=== PATIENT | female | born 2000 | race Caucasian/White ===

== ENCOUNTER 2021-06-30 14:42 | Observation (INO) ==
[2021-06-30] MEDS ORDERED: SODIUM CHLORIDE 0.9% 1000ML 1,000 ML IV STA (16:19)
[2021-06-30] MEDS ORDERED: ONDANSETRON INJ 2 MG/ML 2 ML VIAL IV STA (16:19)
[2021-06-30] MEDS ORDERED: MoRPHine SULFATE 4 MG/ML 1 ML CARP\\VIAL IV STA (16:19)
--- NOTE | 2021-06-30 16:28 | Emergency Department Note ---
History of Present Illness General Chief complaint: Abdominal Pain Stated complaint: SEVERE ABDOMINAL PAIN, NASUEA, LIGHT HEADED Time Seen by Provider: 06/30/21 16:05 History of Present Illness Maximum Pain Intensity: 10 20-year-old female who presents to the emergency department for evaluation of recurrent severe abdominal cramping, nausea, lightheadedness and mild diarrhea. The patient reports that she has been here twice within the past month with similar symptoms. The patient reports that she was feeling fine until this morning when she woke up. The patient has not checked her temperature at home. She denies any urinary symptoms or mucus/bloody stools. The patient reports that she has had abdominal problems now for over a year. She admits that she has not seen a forging die finisher or her family doctor at home, nor has she seen anyone since her last visit to the emergency department. The patient reports that she was previously prescribed Zofran and dicyclomine for her symptoms. She has not taken them recently. The patient rates her discomfort a 10 out of 10. She reports the pain is generalized across the entire abdomen. She has no specific alleviating or aggravating factors. Home Medications Medication Instructions Recorded Confirmed Type dicyclomine 20 mg tablet 20 mg PO TID PRN #15 tab 06/09/21 06/30/21 Rx promethazine 25 mg tablet 25 mg PO TID PRN #10 tab 06/11/21 06/30/21 Rx Allergies Allergy/AdvReac Type Severity Reaction Status Date / Time No Known Allergies Allergy Unverified 06/30/21 16:33 Past Med/Surg History Medical History No pertinent past medical history Surgical History S/P wisdom tooth extraction Social History (Updated 06/30/21 @ 16:23 by Joshua Barrera) Smoking Status: Never smoker Tobacco Type: Cigarettes Hx Alcohol Use: No Hx Substance Use: No Preferred Language: Citizen Of [place] marital status: Single current occupational status: student Feels Safe at Home: Yes Review of Systems 10 system review was performed and was negative except for pertinent positives and negatives as indicated in history of present illness Physical Exam Vital Signs Vital Signs - 24 hr 06/30/21 14:45 06/30/21 16:53 06/30/21 18:10 Temperature 36.9 C Temperature Source Temporal Artery Scan Pulse Rate 103 H Pulse Rate [Finger] 77 98 H Respiratory Rate 18 20 16 Respiratory Effort / Characteristics Non-Labored Spontaneous Respiratory Depth Normal Respiratory Pattern Regular Blood Pressure 162/96 H Blood Pressure [Left Arm] 126/91 114/69 Blood Pressure Mean 118 Blood Pressure Mean [Left Arm] 102 84 Blood Pressure Position [Left Arm] Lying Lying Pulse Oximetry 100 100 100 Oxygen Delivery Method Room Air Room Air Room Air Sepsis Recent Fever Within 48 Hours No Sepsis New/Unexplained Change in Mental Status No Sepsis Action Taken by Nursing No Action Required 06/30/21 19:04 06/30/21 19:49 Temperature Temperature Source Pulse Rate Pulse Rate [Finger] 92 H 98 H Respiratory Rate 18 Respiratory Effort / Characteristics Respiratory Depth Respiratory Pattern Blood Pressure Blood Pressure [Left Arm] 118/40 L 112/67 Blood Pressure Mean Blood Pressure Mean [Left Arm] 66 82 Blood Pressure Position [Left Arm] Lying Pulse Oximetry 99 98 Oxygen Delivery Method Room Air Room Air Sepsis Recent Fever Within 48 Hours Sepsis New/Unexplained Change in Mental Status Sepsis Action Taken by Nursing CONSTITUTIONAL: Healthy and well nourished. Alert and oriented X 3. Patient appears in moderate discomfort. HEENT: Normocephalic, atraumatic. Pupils equal, round and reactive. No scleral icterus or conjunctival injection/pallor. Mucous membranes are dry. NECK: Full active range of motion without discomfort. LYMPHATICS: No cervical chain adenopathy. RESPIRATORY: Clear to auscultation bilaterally with no wheezing, crackles, rhonchi or stridor. CARDIOVASCULAR: Regular rate and rhythm with no murmurs, rubs or gallops. GASTROINTESTINAL: Bowel sounds present in all quadrants. Patient has generalized and nonfocal tenderness to palpation of the abdomen. No rebound, rigidity or guarding. Negative CVA tenderness. MUSCULOSKELETAL: Full range of motion of all joints without discomfort. No obvious edema, erythema or increased warmth to palpation over the major joints. INTEGUMENTARY: No rash or other significant dermatologic conditions noted. HEMATOLOGIC: No ecchymosis or petechiae. PSYCHIATRIC: Positive affect. NEUROLOGIC: No focal neurologic deficits noted. Course Course Patient history and physical exam were performed. Nurses notes were reviewed. Vital signs were reviewed, showing an elevated blood pressure 162/96. The patient is mildly tachycardic at 103 bpm. She is not febrile. I also reviewed prior medical records from the patient's ED visits on 06/09 and 06/11/21. The patient did have CT imaging on both visits, showing no concerning findings. The patient did have a notable hypokalemia of 2.81 her second visit, otherwise no other major electrolyte abnormalities. Although the patient reports that CT imaging showed inflammatory findings. Actual radiologist reports from these 2 visits does not show any acute infectious or inflammatory findings within the abdomen or pelvis. IV access was established, and labs were drawn. The patient was hydrated with a liter normal saline, and administered IV morphine and Zofran for nausea. Review of labs shows a moderate leukocytosis with a white count of over 15,000, with a notable left shift and 3% bandemia. Further review of labs shows a lactate of 4.1. Today, the patient is normokalemic as opposed to prior visits. Anion gap is mildly elevated. LFTs and lipase are normal. Urinalysis shows 2+ glucosuria and 4+ ketonuria with no obvious evidence for infection. Urine was negative. Upon reevaluation, the patient rated her pain a 2 out of 10. Given her presenting symptoms and elevated lactate level, I did discuss the case further with Dr. Kilgore, ED attending physician, who agreed with CT angiography of the abdomen and pelvis. It is noted that the patient initially had a 22-gauge catheter inserted. I explained that we would need to switch this out to preferably an 18-gauge needle, and the patient was in agreement. We were able to establish 18-gauge IV access, and CT angiography of the abdomen and pelvis was performed, showing a transverse and descending colitis without any other obvious arterial compromise. Findings were again discussed with the patient. I did recommend discussing the case further with our hospitalist for admission, especially given her elevated white count and lactate level. The patient was in agreement to do so. I also discussed the case with the patient's mother via cell phone conversation in the patient's room, and she was also in agreement and appreciative of the care provided. The case was then further discussed with the [facility] Hospitalist service. Please see their dictation for further treatment and final disposition. Administered Medications Discontinued Medications Sodium Chloride (Nss 1000ml) 1,000 mls @ 999 mls/hr IV .Q1H1M STA Stop: 06/30/21 17:19 Last Infusion: 06/30/21 19:19 Dose: 0 mls/hr Documented by: [id number] Admin: 06/30/21 16:36 Dose: 999 mls/hr Documented by: [id number] Sodium Chloride (Nss 1000ml) 1,000 mls @ 999 mls/hr IV .Q1H1M ONE Stop: 06/30/21 19:25 Last Infusion: 06/30/21 19:24 Dose: 0 mls/hr Documented by: [id number] Admin: 06/30/21 18:20 Dose: 999 mls/hr Documented by: [id number] Ioversol (Optiray 320 125ml) 119 ml IV ONCE ONE Stop: 06/30/21 18:20 Last Admin: 06/30/21 18:19 Dose: 1 ml Documented by: [id number] Morphine Sulfate (Morphine Sulfate 4 Mg/Ml 1 Ml Carp\Vial) 4 mg IV NOW STA Stop: 06/30/21 16:20 Last Admin: 06/30/21 16:36 Dose: 4 mg Documented by: [id number] Ondansetron HCl (Ondansetron Inj 2 Mg/Ml 2 Ml Vial) 4 mg IV NOW STA Stop: 06/30/21 16:20 Last Admin: 06/30/21 16:35 Dose: 4 mg Documented by: [id number] Medical Decision Making Medical Records Attestation: I reviewed the patient's medical records. Home Medications Current Medication List: was personally reviewed by me Laboratory Data Attestation: I reviewed the patient's lab results. Result diagrams: 06/30/21 16:35 06/30/21 16:35 Lab Results 06/30/21 06/30/21 06/30/21 Range/Units 16:35 16:35 16:35 WBC 15.05 H (4.8-10.8) K/uL RBC 4.72 (4.2-5.4) M/uL Hgb 15.5 (12.0-16.0) g/dL Hct 42.9 (37-47) % MCV 90.9 (80-100) fL MCH 32.8 (25-34) pg MCHC 36.1 H (32-36) g/dL RDW Std Deviation 40.1 (36.4-46.3) fL RDW Coeff of Claudia 12.1 (11.5-14.5) % Plt Count 256 (130-400) K/uL MPV 10.6 H (7.4-10.4) fL Immature Gran % (Auto) 0.2 % Neut % (Auto) 94.0 % Lymph % (Auto) 3.4 % Traill % (Auto) 2.3 % Eos % (Auto) 0.0 % Baso % (Auto) 0.1 % Neut # (Auto) 14.16 H (1.4-6.5) K/uL Lymph # (Auto) 0.51 L (1.2-3.4) K/uL Traill # (Auto) 0.34 (0.11-0.59) K/uL Eos # (Auto) 0.00 (0-0.5) K/uL Baso # (Auto) 0.01 (0-0.2) K/uL Immature Gran # (Auto) 0.03 H (0.00-0.02) K/uL Sodium 138 (136-145) mmol/L Potassium 3.6 (3.5-5.1) mmol/L Chloride 108 H (98-107) mmol/L Carbon Dioxide 16 L (21-32) mmol/L Anion Gap 14.0 H (3-11) BUN 14 (7-18) mg/dl Creatinine 1.02 (0.6-1.2) mg/dl Est Cr Clr Drug Dosing 65.8 ml/min Est GFR ( Amer) 91.1 ml/min Est GFR (Non-Af Amer) 78.6 ml/min BUN/Creatinine Ratio 13.4 (10-20) Glucose 155 H (70-99) mg/dl Lactate 4.1 H* (0.4-2.0) mmol/L Calcium 9.5 (8.5-10.1) mg/dl Phosphorus 2.4 L (2.5-4.9) mg/dl Magnesium 1.8 (1.8-2.4) mg/dl Total Bilirubin 0.9 (0.2-1) mg/dl AST 10 L (15-37) U/L ALT 17 (12-78) U/L Alkaline Phosphatase 63 (45-117) U/L Lactate Dehydrogenase (84-246) U/L Total Protein 8.5 H (6.4-8.2) gm/dl Albumin 4.5 (3.4-5.0) gm/dl Globulin 4.0 (2.5-4.0) gm/dl Albumin/Globulin Ratio 1.1 (0.9-2) Lipase 90 (73-393) U/L Urine Color Urine Appearance (Clear) Urine pH (4.5-7.5) Ur Specific [place] (1.000-1.030) Urine Protein (Negative) Urine Glucose (UA) (Negative) Urine Ketones (Negative) Urine Blood (Negative) Urine Nitrite (Negative) Urine Bilirubin (Negative) Urine Urobilinogen (Negative) Ur Leukocyte Esterase (Negative) Urine WBC (Auto) (0-5) /hpf Urine RBC (Auto) (0-4) /hpf U Hyaline Cast (Auto) (0-5) /lpf U Epithel Cells (Auto) (0-5) /lpf Urine Bacteria (Auto) (Negative) Ur Renal Epithelial Cell POC Ur Test (NEG) Urine Opiates Screen (Neg) Ur Methadone, Qual (Neg) Urine Barbiturates (Neg) Ur Phencyclidine (PCP) (Neg) U Amphetamin/Meth Scrn (Neg) MDMA (Ecstasy) Screen (Neg) U Benzodiazepines Scrn (Neg) Ur Cocaine Metabolite (Neg) U Marijuana (THC) Screen (Neg) COVID-19 Eval Order 06/30/21 06/30/21 06/30/21 Range/Units 16:35 16:35 16:35 WBC (4.8-10.8) K/uL RBC (4.2-5.4) M/uL Hgb (12.0-16.0) g/dL Hct (37-47) % MCV (80-100) fL MCH (25-34) pg MCHC (32-36) g/dL RDW Std Deviation (36.4-46.3) fL RDW Coeff of Claudia (11.5-14.5) % Plt Count (130-400) K/uL MPV (7.4-10.4) fL Immature Gran % (Auto) % Neut % (Auto) % Lymph % (Auto) % [place] % (Auto) % Eos % (Auto) % Baso % (Auto) % Neut # (Auto) (1.4-6.5) K/uL Lymph # (Auto) (1.2-3.4) K/uL Traill # (Auto) (0.11-0.59) K/uL Eos # (Auto) (0-0.5) K/uL Baso # (Auto) (0-0.2) K/uL Immature Gran # (Auto) (0.00-0.02) K/uL Sodium (136-145) mmol/L Potassium (3.5-5.1) mmol/L Chloride (98-107) mmol/L Carbon Dioxide (21-32) mmol/L Anion Gap (3-11) BUN (7-18) mg/dl Creatinine (0.6-1.2) mg/dl Est Cr Clr Drug Dosing ml/min Est GFR ( Amer) ml/min Est GFR (Non-Af Amer) ml/min BUN/Creatinine Ratio (10-20) Glucose (70-99) mg/dl Lactate (0.4-2.0) mmol/L Calcium (8.5-10.1) mg/dl Phosphorus (2.5-4.9) mg/dl Magnesium (1.8-2.4) mg/dl Total Bilirubin (0.2-1) mg/dl AST (15-37) U/L ALT (12-78) U/L Alkaline Phosphatase (45-117) U/L Lactate Dehydrogenase 159 (84-246) U/L Total Protein (6.4-8.2) gm/dl Albumin (3.4-5.0) gm/dl Globulin (2.5-4.0) gm/dl Albumin/Globulin Ratio (0.9-2) Lipase (73-393) U/L Urine Color Yellow Urine Appearance Clear (Clear) Urine pH 7.5 (4.5-7.5) Ur Specific [place] 1.033 H (1.000-1.030) Urine Protein Trace H (Negative) Urine Glucose (UA) 2+ H (Negative) Urine Ketones 4+ H (Negative) Urine Blood Negative (Negative) Urine Nitrite Negative (Negative) Urine Bilirubin Negative (Negative) Urine Urobilinogen Negative (Negative) Ur Leukocyte Esterase Negative (Negative) Urine WBC (Auto) 1-5 (0-5) /hpf Urine RBC (Auto) 10-30 H (0-4) /hpf U Hyaline Cast (Auto) 1-5 (0-5) /lpf U Epithel Cells (Auto) >30 H (0-5) /lpf Urine Bacteria (Auto) Negative (Negative) Ur Renal Epithelial Cell Not Reportable POC Ur Test (NEG) Urine Opiates Screen Neg (Neg) Ur Methadone, Qual Neg (Neg) Urine Barbiturates Neg (Neg) Ur Phencyclidine (PCP) Neg (Neg) U Amphetamin/Meth Scrn Neg (Neg) MDMA (Ecstasy) Screen Neg (Neg) U Benzodiazepines Scrn Neg (Neg) Ur Cocaine Metabolite Neg (Neg) U Marijuana (THC) Screen Pos H (Neg) COVID-19 Eval Order 06/30/21 06/30/21 06/30/21 Range/Units 16:53 20:03 20:22 WBC (4.8-10.8) K/uL RBC (4.2-5.4) M/uL Hgb (12.0-16.0) g/dL Hct (37-47) % MCV (80-100) fL MCH (25-34) pg MCHC (32-36) g/dL RDW Std Deviation (36.4-46.3) fL RDW Coeff of Claudia (11.5-14.5) % Plt Count (130-400) K/uL MPV (7.4-10.4) fL Immature Gran % (Auto) % Neut % (Auto) % Lymph % (Auto) % [place] % (Auto) % Eos % (Auto) % Baso % (Auto) % Neut # (Auto) (1.4-6.5) K/uL Lymph # (Auto) (1.2-3.4) K/uL [place] # (Auto) (0.11-0.59) K/uL Eos # (Auto) (0-0.5) K/uL Baso # (Auto) (0-0.2) K/uL Immature Gran # (Auto) (0.00-0.02) K/uL Sodium (136-145) mmol/L Potassium (3.5-5.1) mmol/L Chloride (98-107) mmol/L Carbon Dioxide (21-32) mmol/L Anion Gap (3-11) BUN (7-18) mg/dl Creatinine (0.6-1.2) mg/dl Est Cr Clr Drug Dosing ml/min Est GFR ( Amer) ml/min Est GFR (Non-Af Amer) ml/min BUN/Creatinine Ratio (10-20) Glucose (70-99) mg/dl Lactate 1.4 (0.4-2.0) mmol/L Calcium (8.5-10.1) mg/dl Phosphorus (2.5-4.9) mg/dl Magnesium (1.8-2.4) mg/dl Total Bilirubin (0.2-1) mg/dl AST (15-37) U/L ALT (12-78) U/L Alkaline Phosphatase (45-117) U/L Lactate Dehydrogenase (84-246) U/L Total Protein (6.4-8.2) gm/dl Albumin (3.4-5.0) gm/dl Globulin (2.5-4.0) gm/dl Albumin/Globulin Ratio (0.9-2) Lipase (73-393) U/L Urine Color Urine Appearance (Clear) Urine pH (4.5-7.5) Ur Specific [place] (1.000-1.030) Urine Protein (Negative) Urine Glucose (UA) (Negative) Urine Ketones (Negative) Urine Blood (Negative) Urine Nitrite (Negative) Urine Bilirubin (Negative) Urine Urobilinogen (Negative) Ur Leukocyte Esterase (Negative) Urine WBC (Auto) (0-5) /hpf Urine RBC (Auto) (0-4) /hpf U Hyaline Cast (Auto) (0-5) /lpf U Epithel Cells (Auto) (0-5) /lpf Urine Bacteria (Auto) (Negative) Ur Renal Epithelial Cell POC Ur Test NEG (NEG) Urine Opiates Screen (Neg) Ur Methadone, Qual (Neg) Urine Barbiturates (Neg) Ur Phencyclidine (PCP) (Neg) U Amphetamin/Meth Scrn (Neg) MDMA (Ecstasy) Screen (Neg) U Benzodiazepines Scrn (Neg) Ur Cocaine Metabolite (Neg) U Marijuana (THC) Screen (Neg) COVID-19 Eval Order Covid19 at [facility] Imaging Data Attestation: I personally reviewed and interpreted this imaging study as follows: My Impression: My interpretation of an abdomen and pelvis CT angiography study does not show any obvious acute arterial compromise. Patient does have inflammatory changes of the transverse and descending colon, as discussed in the following radiologist report. Radiologist's Impression: Abdomen/Pelvis CTA 06/30/21 18:05 CT angio abdomen pelvis w con CT DOSE: 507.14 mGy.cm CLINICAL HISTORY: Severe abd pain, elev lactate TECHNIQUE: A dose lowering technique was utilized adhering to the principles of ALARA. COMPARISON STUDY: None. FINDINGS: Limited evaluation of lung bases shows no evidence of acute abnormalities. Abdominal aorta is normal in caliber without evidence of dissection or aneurysmal dilatation. Celiac, superior mesenteric bilateral renal and inferior mesenteric arteries are patent. Liver, gallbladder, pancreas and bilateral adrenal glands are unremarkable. Linear lucency is seen within posterior aspect of the spleen which is extending to its capsulae most likely representing cleft. No evidence of surrounding hematoma is seen to suggest splenic rupture (). No hydronephrosis or nephrolithiasis is seen. Urinary bladder is adequately filled with urine. Uterus is anteverted with IUD within uterine cavity. Cystic appearance of bilateral adnexa is seen which could represent physiologic follicles or cysts. Small amount of free fluid is seen within cul-de-sac which could be normal findings in premenopausal female. Bowel loops are nondilated. Appendix is normal in caliber. Transverse and descending colon are collapsed with mild surrounding fat stranding and minimal wall thickening, however there is no mucosal enhancement is seen. Minimal fat stranding is seen within right lower quadrant surrounding loop or terminal ileum. No evidence of retroperitoneal lymphadenopathy. Osseous structures are unremarkable. . IMPRESSION: 1. Normal appearance of abdominal aorta without evidence of dissection or aneurysmal dilatation. Celiac, mesenteric and renal arteries are patent. 2. Collapsed transverse and descending colon with mild surrounding fat stranding and vascularity, could represent colitis. No definite mucosal enhancement is seen. Please correlate above-mentioned findings with prior history and clinical presentation of inflammatory bowel disease. 3. Normal appendix. 4. No hydronephrosis or nephrolithiasis. 5. Cystic appearance of bilateral adnexa which could represent physiologic follicles or cysts. Follow-up evaluation with pelvic ultrasound in approximately 8 weeks is suggested to document improvement/resolution. 6. The rest of findings as above. ACT 112: Positive. There are findings on this exam that require communication between the performing entity and the patient following Patient Test Result Information Act ([place] Act 112) guidelines. The above report was generated using voice recognition software. It may contain grammatical, syntax or spelling errors. Electronically signed by: Joanne Zhang DO 06/30/2021 7:38 PM Blood Pressure Blood Pressure Findings: Normal blood pressure MDM Narrative This is now the patient's third visit within the past 3 weeks for abdominal pain that is rather sudden onset in nature. Prior CT imaging of the abdomen has been normal. On today's presentation, the patient has a notable leukocytosis with elevated lactate. I did order CT angiography to rule out other acute arterial etiologies, which fortunately are not present. CT imaging does show evidence for a probable inflammatory colitis of the transverse and descending colon. The patient will likely require colonoscopy studies to rule out inflammatory bowel disease. While speaking on the phone with the patient's mother, the mother also has a history of IBD. Additional laboratory studies are not suggestive of pancreatitis, cholecystitis, hepatitis or UTI. Patient does have a positive urine drug test for marijuana that could also be playing into her symptoms with possible cannabinoid hyperemesis syndrome. I do feel that the patient warrants admission given CT findings, elevated lactate level and leukocytosis. Impression & Plan Colitis, Abdominal pain, Nausea and vomiting Discharge Plan Visit Data Chief Complaint: Abdominal Pain Stated Complaint: SEVERE ABDOMINAL PAIN, NASUEA, LIGHT HEADED ED Provider: Manuel Kilgore ED Midlevel Provider: Joshua Barrera Discharge Problem: Colitis, Abdominal pain, Nausea and vomiting Forms Stand Alone Forms: Nanalysis Prescriptions Prescriptions: No Action dicyclomine 20 mg tablet 20 mg PO TID PRN (Reason: abdominal cramping) Qty: 15 RF: 0 promethazine 25 mg tablet 25 mg PO TID PRN (Reason: sedation) Qty: 10 RF: 0 Referrals Referrals: PCP,NO [Physician] - Discharge Problem: Abdominal pain Qualifiers: Abdominal location: generalized Qualified Code(s): R10.84 - Generalized abdominal pain Nausea and vomiting Qualifiers: Vomiting type: unspecified Vomiting Intractability: non-intractable Qualified Code(s): R11.2 - Nausea with vomiting, unspecified
[2021-06-30 16:57] LABS: Basophils # (auto) 0.01 K/uL (0-0.2); Basophils % (auto) 0.1 %; Hematocrit (blood only) 42.9 % (37-47); Hemoglobin 15.5 g/dL (12.0-16.0); Immature Granulocytes # (auto) 0.03 K/uL (0.00-0.02); Immature Granulocytes % (auto) 0.2 %; Lymphocytes # (auto) 0.51 K/uL (1.2-3.4); Lymphocytes % (auto) 3.4 %; Mean Corpuscular Hemoglobin 32.8 pg (25-34); Mean Corpuscular Hgb Conc 36.1 g/dL (32-36); Mean Corpuscular Volume 90.9 fL (80-100); Mean Platelet Volume 10.6 fL (7.4-10.4); Monocytes # (auto) 0.34 K/uL (0.11-0.59); Monocytes % (auto) 2.3 %; Neutrophils # (auto) 14.16 K/uL (1.4-6.5); Platelet Count 256 K/uL (130-400); RDW Coefficient of Variation 12.1 % (11.5-14.5); RDW Standard Deviation 40.1 fL (36.4-46.3); Red Blood Count 4.72 M/uL (4.2-5.4); White Blood Count 15.05 K/uL (4.8-10.8)
[2021-06-30 17:23] LABS: Appearance Urine Clear (Clear); Bacteria Urine Automated Negative (Negative); Bilirubin Urine Negative (Negative); Blood Urine Negative (Negative); Color Urine Yellow; Epithelial Cell Urine Auto >30 /lpf (0-5); Glucose Urine UA 2+ (Negative); Ketones Urine 4+ (Negative); Leukocyte Esterase Urine Negative (Negative); Nitrite Urine Negative (Negative); Specific Gravity Urine 1.033 (1.000-1.030); Urobilinogen Urine Negative (Negative); pH Urine 7.5 (4.5-7.5)
[2021-06-30 17:26] LABS: Albumin Level 4.5 gm/dl (3.4-5.0); BUN Creatinine Ratio 13.4 (10-20); Bilirubin,Total 0.9 mg/dl (0.2-1); Calcium 9.5 mg/dl (8.5-10.1); Creatinine Clr Calc Pharmacy 65.8 ml/min; Est GFR (African American) 91.1 ml/min; Est GFR (Non-African American) 78.6 ml/min; Magnesium 1.8 mg/dl (1.8-2.4); Potassium 3.6 mmol/L (3.5-5.1)
[2021-06-30 17:28] LABS: Albumin Globulin Ratio 1.1 (0.9-2); Phosphorus 2.4 mg/dl (2.5-4.9); Total Protein 8.5 gm/dl (6.4-8.2)
[2021-06-30 17:32] LABS: Protein Urine Trace (Negative)
[2021-06-30 18:19] LABS: Amphetamines+Metham, Urine Neg (Neg); Barbiturates, Urine Neg (Neg); Benzodiazepine, Urine Neg (Neg); Cocaine, Urine Neg (Neg); MDMA (Ecstacy), Urine Neg (Neg); Methadone, Urine Neg (Neg); Opiate, Urine Neg (Neg); Phencyclidine, Urine Neg (Neg)
[2021-06-30] MEDS ORDERED: OPTIRAY 320 125ml IV ONE (18:19)
[2021-06-30] MEDS ORDERED: SODIUM CHLORIDE 0.9% 1000ML 1,000 ML IV ONE (18:25)
--- NOTE | 2021-06-30 19:39 | CT Scan Report ---
CT angio abdomen pelvis w con CT DOSE: 507.14 mGy.cm CLINICAL HISTORY: Severe abd pain, elev lactate TECHNIQUE: A dose lowering technique was utilized adhering to the principles of ALARA. COMPARISON STUDY: None. FINDINGS: Limited evaluation of lung bases shows no evidence of acute abnormalities. Abdominal aorta is normal in caliber without evidence of dissection or aneurysmal dilatation. Celiac, superior mesenteric bilateral renal and inferior mesenteric arteries are patent. Liver, gallbladder, pancreas and bilateral adrenal glands are unremarkable. Linear lucency is seen within posterior aspect of the spleen which is extending to its capsulae most likely representing cleft. No evidence of surrounding hematoma is seen to suggest splenic rupture (). No hydronephrosis or nephrolithiasis is seen. Urinary bladder is adequately filled with urine. Uterus is anteverted with IUD within uterine cavity. Cystic appearance of bilateral adnexa is seen which could represent physiologic follicles or cysts. Small amount of free fluid is seen within cul-de-sac which could be normal findings in premenopausal female. Bowel loops are nondilated. Appendix is normal in caliber. Transverse and descending colon are collapsed with mild surrounding fat stranding and minimal wall th ickening, however there is no mucosal enhancement is seen. Minimal fat stranding is seen within right lower quadrant surrounding loop or terminal ileum. No evidence of retroperitoneal lymphadenopathy. Osseous structures are unremarkable. . IMPRESSION: 1. Normal appearance of abdominal aorta without evidence of dissection or aneurysmal dilatation. Starr iac, mesenteric and renal arteries are patent. 2. Collapsed transverse and descending colon with mild surrounding fat stranding and vascularity, co uld represent colitis. No definite mucosal enhancement is seen. Please correlate above-mentioned find ings with prior history and clinical presentation of inflammatory bowel disease. 3. Normal appendix. 4. No hydronephrosis or nephrolithiasis. 5. Cystic appearance of bilateral adnexa which could represent physiologic follicles or cysts. Follo w-up evaluation with pelvic ultrasound in approximately 8 weeks is suggested to document improvement/ resolution. 6. The rest of findings as above. ACT 112: Positive. There are findings on this exam that require communication between the performing entity and the patient following Patient Test Result Information Act [place] Act 112) guidelines. The above report was generated using voice recognition software. It may contain grammatical, syntax o r spelling errors. Electronically signed by: Joanne Zhang DO 06/30/2021 7:38 PM
--- NOTE | 2021-06-30 22:23 | History & Physical Report ---
Date of Service June 30, 2021 Assessment & Plan (1) Colitis: Plan: CT scan suggestive of possible colitis- Full liquid diet NSS + KCl 20 mEq at 100 mils per hour Famotidine 20 mg IV every 12 hours Zofran 4 mg IV every 6 hours as needed Phenergan 12.5 mg IV every 6 hours as needed Acetaminophen 650 mg p.o. every 6 hours as needed mild pain or fever Follow results of stool studies for C. difficile and stool culture Of note patient vapes with prescription marijuana every evening to help deal with PTSD/insomnia Consult gastroenterology due to family history of IBD and patient's current symptoms History of Present Illness Chief Complaint: The patient presents to the emergency department with recurrent severe abdominal pain, cramping and nausea, with the development of diarrhea earlier this morning. Primary Care Provider: [facility] The patient is a 20-year-old female with a past medical history, who has had several months of abdominal pain, which is worsened over the past few weeks, and was accompanied by diarrhea early this morning. She has presented to the emergency department on June 09, June 11, and this evening with worsening symptoms. She reports a family history of her mother having some form of inflammatory bowel disease. She denies any recent travels or sick exposures. She is COVID-19 negative in the ED. She does vape marijuana every evening on a prescription basis. Allergies Allergy/AdvReac Type Severity Reaction Status Date / Time No Known Allergies Allergy Unverified 06/30/21 16:33 Home Medications Medication Instructions Recorded Confirmed Type dicyclomine 20 mg tablet 20 mg PO TID PRN #15 tab 06/09/21 06/30/21 Rx promethazine 25 mg tablet 25 mg PO TID PRN #10 tab 06/11/21 06/30/21 Rx Past Med/Surg History Medical History No pertinent past medical history Surgical History S/P wisdom tooth extraction Social History (Updated 06/30/21 @ 16:23 by Joshua Barrera) Smoking Status: Never smoker Tobacco Type: Cigarettes Hx Alcohol Use: No Hx Substance Use: No Preferred Language: Uzbek marital status: Single current occupational status: student Feels Safe at Home: Yes Review of Systems Review of Systems: The patient denies chest pain, palpitations, shortness of breath, dyspnea on exertion, cough, lower extremity swelling, sore throat, fevers, chills, sweats, vomiting, blood in urine or stool, dysuria, urinary frequency or urgency, dizziness, headache, memory loss, loss of consciousness, rash, abnormal bruising or bleeding, imbalance, focal or generalized weakness, numbness or tingling in arms or legs, generalized arthralgias or myalgias, back or neck pain, or night sweats. The review of systems is otherwise negative other than for that already noted above, and at least 10 systems have been reviewed. Physical Exam Physical Exam: The patient is awake, alert and oriented 3, well developed and well nourished, normocephalic and atraumatic, lying in bed and in no acute distress. HEENT--PERRL, EOMI, mucous membranes and oropharynx dry. Neck--supple. No JVD. No bruits. Thyroid normal, trachea midline, no adenopathy. Heart--normal S1 and S2. No murmurs, rubs or gallops. Lungs--clear bilaterally, no respiratory distress, no accessory muscle use. Abdomen--normal bowel sounds and soft. Nontender. Nondistended, no hernias or masses, no organomegaly. Extremities--no cyanosis or clubbing. No edema. Dermatologic--normal skin turgor, normal color, no abnormal lymph nodes, no rash. Neurologic--cranial nerves II through XII grossly intact. Rheumatologic--normal range of motion. Psychiatric--normal affect. Results & Data Results & Data ([facility]) Vital Signs (Past 12 Hours) Vital Signs Temp Pulse Pulse Resp BP BP Pulse Ox 06/30/21 21:05 96 H 18 119/72 97 06/30/21 19:49 98 H 18 112/67 98 06/30/21 19:04 92 H 118/40 L 99 06/30/21 18:10 98 H 16 114/69 100 06/30/21 16:53 77 20 126/91 100 06/30/21 14:45 98.4 F 103 H 18 162/96 H 100 Laboratory Results Laboratory Results WBC 15.05 K/uL (4.8-10.8) H 06/30/21 16:35 RBC 4.72 M/uL (4.2-5.4) 06/30/21 16:35 Hgb 15.5 g/dL (12.0-16.0) 06/30/21 16:35 Hct 42.9 % (37-47) 06/30/21 16:35 MCV 90.9 fL (80-100) 06/30/21 16:35 MCH 32.8 pg (25-34) 06/30/21 16:35 MCHC 36.1 g/dL (32-36) H 06/30/21 16:35 RDW Std Deviation 40.1 fL (36.4-46.3) 06/30/21 16:35 RDW Coeff of Claudia 12.1 % (11.5-14.5) 06/30/21 16:35 Plt Count 256 K/uL (130-400) 06/30/21 16:35 MPV 10.6 fL (7.4-10.4) H 06/30/21 16:35 Immature Gran % (Auto) 0.2 % 06/30/21 16:35 Neut % (Auto) 94.0 % 06/30/21 16:35 Lymph % (Auto) 3.4 % 06/30/21 16:35 Cooper % (Auto) 2.3 % 06/30/21 16:35 Eos % (Auto) 0.0 % 06/30/21 16:35 Baso % (Auto) 0.1 % 06/30/21 16:35 Neut # (Auto) 14.16 K/uL (1.4-6.5) H 06/30/21 16:35 Lymph # (Auto) 0.51 K/uL (1.2-3.4) L 06/30/21 16:35 [place] # (Auto) 0.34 K/uL (0.11-0.59) 06/30/21 16:35 Eos # (Auto) 0.00 K/uL (0-0.5) 06/30/21 16:35 Baso # (Auto) 0.01 K/uL (0-0.2) 06/30/21 16:35 Immature Gran # (Auto) 0.03 K/uL (0.00-0.02) H 06/30/21 16:35 Sodium 138 mmol/L (136-145) 06/30/21 16:35 Potassium 3.6 mmol/L (3.5-5.1) 06/30/21 16:35 Chloride 108 mmol/L (98-107) H 06/30/21 16:35 Carbon Dioxide 16 mmol/L (21-32) L 06/30/21 16:35 Anion Gap 14.0 (3-11) H 06/30/21 16:35 BUN 14 mg/dl (7-18) 06/30/21 16:35 Creatinine 1.02 mg/dl (0.6-1.2) 06/30/21 16:35 Est Cr Clr Drug Dosing 65.8 ml/min 06/30/21 16:35 Est GFR ( Amer) 91.1 ml/min 06/30/21 16:35 Est GFR (Non-Af Amer) 78.6 ml/min 06/30/21 16:35 BUN/Creatinine Ratio 13.4 (10-20) 06/30/21 16:35 Glucose 155 mg/dl (70-99) H 06/30/21 16:35 Lactate 1.4 mmol/L (0.4-2.0) 06/30/21 20:22 Calcium 9.5 mg/dl (8.5-10.1) 06/30/21 16:35 Phosphorus 2.4 mg/dl (2.5-4.9) L 06/30/21 16:35 Magnesium 1.8 mg/dl (1.8-2.4) 06/30/21 16:35 Total Bilirubin 0.9 mg/dl (0.2-1) 06/30/21 16:35 AST 10 U/L (15-37) L 06/30/21 16:35 ALT 17 U/L (12-78) 06/30/21 16:35 Alkaline Phosphatase 63 U/L (45-117) 06/30/21 16:35 Lactate Dehydrogenase 159 U/L (84-246) 06/30/21 16:35 Total Protein 8.5 gm/dl (6.4-8.2) H 06/30/21 16:35 Albumin 4.5 gm/dl (3.4-5.0) 06/30/21 16:35 Globulin 4.0 gm/dl (2.5-4.0) 06/30/21 16:35 Albumin/Globulin Ratio 1.1 (0.9-2) 06/30/21 16:35 Lipase 90 U/L (73-393) 06/30/21 16:35 Urine Color Yellow 06/30/21 16:35 Urine Appearance Clear (Clear) 06/30/21 16:35 Urine pH 7.5 (4.5-7.5) 06/30/21 16:35 Ur Specific [place] 1.033 (1.000-1.030) H 06/30/21 16:35 Urine Protein Trace (Negative) H 06/30/21 16:35 Urine Glucose (UA) 2+ (Negative) H 06/30/21 16:35 Urine Ketones 4+ (Negative) H 06/30/21 16:35 Urine Blood Negative (Negative) 06/30/21 16:35 Urine Nitrite Negative (Negative) 06/30/21 16:35 Urine Bilirubin Negative (Negative) 06/30/21 16:35 Urine Urobilinogen Negative (Negative) 06/30/21 16:35 Ur Leukocyte Esterase Negative (Negative) 06/30/21 16:35 Urine WBC (Auto) 1-5 /hpf (0-5) 06/30/21 16:35 Urine RBC (Auto) 10-30 /hpf (0-4) H 06/30/21 16:35 U Hyaline Cast (Auto) 1-5 /lpf (0-5) 06/30/21 16:35 U Epithel Cells (Auto) >30 /lpf (0-5) H 06/30/21 16:35 Urine Bacteria (Auto) Negative (Negative) 06/30/21 16:35 Ur Renal Epithelial Cell Not Reportable 06/30/21 16:35 POC Ur Test NEG (NEG) 06/30/21 16:53 Urine Opiates Screen Neg (Neg) 06/30/21 16:35 Ur Methadone, Qual Neg (Neg) 06/30/21 16:35 Urine Barbiturates Neg (Neg) 06/30/21 16:35 Ur Phencyclidine (PCP) Neg (Neg) 06/30/21 16:35 U Amphetamin/Meth Scrn Neg (Neg) 06/30/21 16:35 MDMA (Ecstasy) Screen Neg (Neg) 06/30/21 16:35 U Benzodiazepines Scrn Neg (Neg) 06/30/21 16:35 Ur Cocaine Metabolite Neg (Neg) 06/30/21 16:35 U Marijuana (THC) Screen Pos (Neg) H 06/30/21 16:35 COVID-19 Eval Order Covid19 at [facility] 06/30/21 20:03 SARS-CoV-2 (PCR) NEGATIVE (Negative) 06/30/21 20:03 Impressions Abdomen/Pelvis CTA 06/30/21 18:05 CT angio abdomen pelvis w con CT DOSE: 507.14 mGy.cm CLINICAL HISTORY: Severe abd pain, elev lactate TECHNIQUE: A dose lowering technique was utilized adhering to the principles of ALARA. COMPARISON STUDY: None. FINDINGS: Limited evaluation of lung bases shows no evidence of acute abnormalities. Abdominal aorta is normal in caliber without evidence of dissection or aneurysmal dilatation. Celiac, superior mesenteric bilateral renal and inferior mesenteric arteries are patent. Liver, gallbladder, pancreas and bilateral adrenal glands are unremarkable. Linear lucency is seen within posterior aspect of the spleen which is extending to its capsulae most likely representing cleft. No evidence of surrounding hematoma is seen to suggest splenic rupture (-). No hydronephrosis or nephrolithiasis is seen. Urinary bladder is adequately filled with urine. Uterus is anteverted with IUD within uterine cavity. Cystic appearance of bilateral adnexa is seen which could represent physiologic follicles or cysts. Small amount of free fluid is seen within cul-de-sac which could be normal findings in premenopausal female. Bowel loops are nondilated. Appendix is normal in caliber. Transverse and descending colon are collapsed with mild surrounding fat stranding and minimal wall thickening, however there is no mucosal enhancement is seen. Minimal fat stranding is seen within right lower quadrant surrounding loop or terminal ileum. No evidence of retroperitoneal lymphadenopathy. Osseous structures are unremarkable. . IMPRESSION: 1. Normal appearance of abdominal aorta without evidence of dissection or aneurysmal dilatation. Celiac, mesenteric and renal arteries are patent. 2. Collapsed transverse and descending colon with mild surrounding fat stranding and vascularity, could represent colitis. No definite mucosal enhancement is seen. Please correlate above-mentioned findings with prior history and clinical presentation of inflammatory bowel disease. 3. Normal appendix. 4. No hydronephrosis or nephrolithiasis. 5. Cystic appearance of bilateral adnexa which could represent physiologic follicles or cysts. Follow-up evaluation with pelvic ultrasound in approximately 8 weeks is suggested to document improvement/resolution. 6. The rest of findings as above. ACT 112: Positive. There are findings on this exam that require communication between the performing entity and the patient following Patient Test Result Information Act ([place] Act 112) guidelines. The above report was generated using voice recognition software. It may contain grammatical, syntax or spelling errors. Electronically signed by: Joanne Zhang DO 06/30/2021 7:38 PM Code Status & VTE Plan Code Status Full code VTE Prophylaxis Plan VTE Prophylaxis will be ordered: Yes PG Care Time/CCT Total # of Minutes Spent Total Time Spent with Patient: Total time spent is greater than 50% in coordination of care (as documented) at patient's floor/unit and/or counseling patient: Coding Level of Care Code INT OBSERVATION CARE 70M LVL 3 Diagnoses Colitis K52.9
[2021-06-30] MEDS ORDERED: DICYCLOMINE HCL 20 MG TAB PO PRN (23:49)
[2021-06-30] MEDS ORDERED: ACETAMINOPHEN 325 MG TAB PO PRN (23:49)
[2021-06-30] MEDS ORDERED: ONDANSETRON INJ 2 MG/ML 2 ML VIAL IV PRN (23:49)
[2021-06-30] MEDS ORDERED: PROMETHAZINE HCL 12.5 MG in SODIUM CHLORIDE 0.9% 50 ML IV PRN (23:49)
[2021-07-01] MEDS: NSS + 20MEQ KCL 20 MEQ/1,000 ML BAG IV SCH ×2 (00:16→10:20)
[2021-07-01] MEDS: FAMOTIDINE 20 MG in SYRINGE 3 ML IV SCH ×2 (00:17→11:53)
[2021-07-01] MEDS ORDERED: MoRPHine SULFATE 2 MG/ML CARP IV STA (03:26)
[2021-07-01] MEDS ORDERED: MoRPHine SULFATE 2 MG/ML CARP ONE (03:29)
[2021-07-01 08:01] LABS: Basophils # (auto) 0.02 K/uL (0-0.2); Basophils % (auto) 0.2 %; Eosinophils # (auto) 0.01 K/uL (0-0.5); Eosinophils % (auto) 0.1 %; Hematocrit (blood only) 35.3 % (37-47); Hemoglobin 11.9 g/dL (12.0-16.0); Immature Granulocytes # (auto) 0.02 K/uL (0.00-0.02); Immature Granulocytes % (auto) 0.2 %; Lymphocytes # (auto) 1.82 K/uL (1.2-3.4); Lymphocytes % (auto) 17.6 %; Mean Corpuscular Hemoglobin 31.8 pg (25-34); Mean Corpuscular Hgb Conc 33.7 g/dL (32-36); Mean Corpuscular Volume 94.4 fL (80-100); Mean Platelet Volume 10.5 fL (7.4-10.4); Monocytes # (auto) 0.71 K/uL (0.11-0.59); Monocytes % (auto) 6.9 %; Neutrophils # (auto) 7.75 K/uL (1.4-6.5); Platelet Count 193 K/uL (130-400); RDW Coefficient of Variation 12.5 % (11.5-14.5); RDW Standard Deviation 43.1 fL (36.4-46.3); Red Blood Count 3.74 M/uL (4.2-5.4); White Blood Count 10.33 K/uL (4.8-10.8)
[2021-07-01 08:22] LABS: Albumin Globulin Ratio 1.1 (0.9-2); Albumin Level 3.2 gm/dl (3.4-5.0); BUN Creatinine Ratio 14.7 (10-20); Bilirubin,Total 0.6 mg/dl (0.2-1); Calcium 8.4 mg/dl (8.5-10.1); Creatinine Clr Calc Pharmacy 108.3 ml/min; Est GFR (African American) 149.4 ml/min; Est GFR (Non-African American) 128.9 ml/min; Globulin 2.8 gm/dl (2.5-4.0); Magnesium 1.7 mg/dl (1.8-2.4); Potassium 3.8 mmol/L (3.5-5.1); Total Protein 6.1 gm/dl (6.4-8.2)
--- NOTE | 2021-07-01 09:37 | Gastrointestinal Consultation ---
Date of Consultation July 01, 2021 Assessment & Plan (1) Abdominal pain: (2) Nausea and vomiting: (3) Diarrhea: (4) Abnormal CT of the abdomen: Patient is a 20 y.o. female wtih a maternal history of IBD admitted with abdominal pain, n/v/d and abnormal CT imaging suggestive of possible enterocolitis. DDX: false positive CT ([address] scans within the past 3 weeks) vs bacterial gastroenteritis vs viral enteritis vs IBD vs other. * Await stool CX and C Diff as ordered. * Add fecal leukocytes. * Continue Bentyl 20 mg q 6 hours as needed for abdominal pain. * Diet advancement to soft, low residue as tolerated. * Continue supportive care. * Outpatient colonoscopy scheduled with Dr. Chauhan next , 07/10. * Outpatient follow up in our office has been scheduled for 07/16/21 at 9:20 AM. Thank you for allowing us to participate in the care of this pleasant patient. If you have any questions or concerns, please do not hesitate to contact us. Supervising Physician Co-Signing Physician Notes I personally evaluated the patient and agree with the findings as documented by ROSALIO Hernandez Exam: abd: soft, nt, nd History of Present Illness Reason for Consultation: Abdominal pain Requesting Physician: Dr. Whitehead Attending Physician: Manuel Vega DO History of Present Illness Patient is a very pleasant 20 y.o. female with a history of chronic but intermit tent abdominal pain which she reports has been ongoing for the past year. Initially, the pains would occur infrequently, lasting up to a maximum of one hour. Over time, however, the pains began to occur more frequently (about once per week) and more intense. She states that due to the abdominal pain, she has been eating less and has sustained an approximate 40 pound weight loss over the past two months. Due to symptoms, she did present to the ER locally (just moved here from [place] to attend [employer]) on 06/09 and 06/11. At that time, labs and CT a/p were unremarkable. She returned the hospital yesterday with worsened pain and now with n/v and diarrhea of watery stool. She did have a leukocytosis of 15.05 and elevated serum lactate of 4.1. A repeat CT with contrast demonstrated a collapsed transverse/descending colon with mild stranding as well as minimal wall thickening without mucosal enhancement with stranding in the region of the TI. No retroperitoneal lymphadenopathy. Repeat WBC and lactate demonstrated normalization. Stool culture and C Diff have been ordered although patient has not had any further diarrhea or bms since admission. Currently, she reports mild abdominal pain in the periumbilical and left upper and lower quadrants, rated 3/10. States that eating worsens her symptoms. Analgesics improve her pain. No further n/v. No fevers but occasional chills. No arthralgias, myalgias, joint pain/edema, eye pain/redness, rashes or fatigue. Normal menses. No urinary sx. Denies any NSAID use. +tobacco. Maternal history of IBD although patient is uncertain as to the specific dx. Allergies Allergy/AdvReac Type Severity Reaction Status Date / Time No Known Allergies Allergy Unverified 06/30/21 16:33 Home Medications Medication Instructions Recorded Confirmed Type dicyclomine 20 mg tablet 20 mg PO TID PRN #15 tab 06/09/21 06/30/21 Rx promethazine 25 mg tablet 25 mg PO TID PRN #10 tab 06/11/21 06/30/21 Rx sodium,potassium,mag sulfates 17.5 177 ml PO .COMPLEX #354 ml 07/01/21 Rx gram-3.13 gram-1.6 gram oral soln (Suprep Bowel Prep Kit) Patient History Medical History No pertinent past medical history Surgical History S/P wisdom tooth extraction Social History Smoking Status: Never smoker Tobacco Type: Cigarettes Hx Alcohol Use: No Hx Substance Use: Yes Last Used Substance: Days (ago) Last Used Substance Other:: 06/19/21 Preferred Language: Tajik Communication Ability: Effective Burrer Machine Required: No Beliefs That Will Affect Care: None marital status: Single Current Living Situation: Other Current Living Situation Comment: Roomates current occupational status: student Feels Safe at Home: Yes Assistive Devices: None Review of Systems Review of Systems: A 13 point review of systems was negative other than p ertinent positives and negatives as per the HPI. Physical Exam Constitutional: WD/WN, vitals as above Eyes: EOM intact bilaterally Neck: normal appearance Respiratory: normal respiratory effort, lungs clear to auscultation Cardiovascular: Rate/Rhythm: regular rate and regular rhythm Heart Sounds: no gallop and no murmur Gastrointestinal (Abdomen): normal bowel sounds, soft, nontender, no hepatosplenomegaly Musculoskeletal: Extremities: no cyanosis no lower extremity edema Skin: no rashes, warm and dry Neurologic: moves all extremities Psychiatric: A+Ox3, euthymic affect Results & Data ([facility]) Vital Signs (Past 12 Hours) Vital Signs Temp Pulse Resp BP Pulse Ox 07/01/21 08:07 36.9 C 90 16 96/66 L 98 06/30/21 23:45 37.2 C 84 16 132/85 99 06/30/21 23:00 70 18 116/59 L 97 06/30/21 22:30 82 18 114/52 L 98 Laboratory Results Abnormal lab results 06/30/21 06/30/21 06/30/21 Range/Units 16:35 16:35 16:35 WBC 15.05 H (4.8-10.8) K/uL RBC (4.2-5.4) M/uL Hgb (12.0-16.0) g/dL Hct (37-47) % MCHC 36.1 H (32-36) g/dL MPV 10.6 H (7.4-10.4) fL Neut # (Auto) 14.16 H (1.4-6.5) K/uL Lymph # (Auto) 0.51 L (1.2-3.4) K/uL [place] # (Auto) (0.11-0.59) K/uL Immature Gran # (Auto) 0.03 H (0.00-0.02) K/uL Chloride 108 H (98-107) mmol/L Carbon Dioxide 16 L (21-32) mmol/L Anion Gap 14.0 H (3-11) Glucose 155 H (70-99) mg/dl Lactate 4.1 H* (0.4-2.0) mmol/L Calcium (8.5-10.1) mg/dl Phosphorus 2.4 L (2.5-4.9) mg/dl Magnesium (1.8-2.4) mg/dl AST 10 L (15-37) U/L Alkaline Phosphatase (45-117) U/L Total Protein 8.5 H (6.4-8.2) gm/dl Albumin (3.4-5.0) gm/dl Ur Specific [place] (1.000-1.030) Urine Protein (Negative) Urine Glucose (UA) (Negative) Urine Ketones (Negative) Urine RBC (Auto) (0-4) /hpf U Epithel Cells (Auto) (0-5) /lpf U Marijuana (THC) Screen (Neg) 06/30/21 06/30/21 07/01/21 Range/Units 16:35 16:35 07:16 WBC (4.8-10.8) K/uL RBC 3.74 L (4.2-5.4) M/uL Hgb 11.9 L D (12.0-16.0) g/dL Hct 35.3 L (37-47) % MCHC (32-36) g/dL MPV 10.5 H (7.4-10.4) fL Neut # (Auto) 7.75 H (1.4-6.5) K/uL Lymph # (Auto) (1.2-3.4) K/uL [place] # (Auto) 0.71 H (0.11-0.59) K/uL Immature Gran # (Auto) (0.00-0.02) K/uL Chloride (98-107) mmol/L Carbon Dioxide (21-32) mmol/L Anion Gap (3-11) Glucose (70-99) mg/dl Lactate (0.4-2.0) mmol/L Calcium (8.5-10.1) mg/dl Phosphorus (2.5-4.9) mg/dl Magnesium (1.8-2.4) mg/dl AST (15-37) U/L Alkaline Phosphatase (45-117) U/L Total Protein (6.4-8.2) gm/dl Albumin (3.4-5.0) gm/dl Ur Specific [place] 1.033 H (1.000-1.030) Urine Protein Trace H (Negative) Urine Glucose (UA) 2+ H (Negative) Urine Ketones 4+ H (Negative) Urine RBC (Auto) 10-30 H (0-4) /hpf U Epithel Cells (Auto) >30 H (0-5) /lpf U Marijuana (THC) Screen Pos H (Neg) 07/01/21 Range/Units 07:16 WBC (4.8-10.8) K/uL RBC (4.2-5.4) M/uL Hgb (12.0-16.0) g/dL Hct (37-47) % MCHC (32-36) g/dL MPV (7.4-10.4) fL Neut # (Auto) (1.4-6.5) K/uL Lymph # (Auto) (1.2-3.4) K/uL [place] # (Auto) (0.11-0.59) K/uL Immature Gran # (Auto) (0.00-0.02) K/uL Chloride 115 H (98-107) mmol/L Carbon Dioxide 20 L (21-32) mmol/L Anion Gap (3-11) Glucose (70-99) mg/dl Lactate (0.4-2.0) mmol/L Calcium 8.4 L (8.5-10.1) mg/dl Phosphorus (2.5-4.9) mg/dl Magnesium 1.7 L (1.8-2.4) mg/dl AST 8 L (15-37) U/L Alkaline Phosphatase 40 L (45-117) U/L Total Protein 6.1 L D (6.4-8.2) gm/dl Albumin 3.2 L (3.4-5.0) gm/dl Ur Specific [place] (1.000-1.030) Urine Protein (Negative) Urine Glucose (UA) (Negative) Urine Ketones (Negative) Urine RBC (Auto) (0-4) /hpf U Epithel Cells (Auto) (0-5) /lpf U Marijuana (THC) Screen (Neg) PG Care Time/CCT Total # of Minutes Spent Total Time Spent with Patient: Total time spent is greater than 50% in coordination of care (as documented) at patient's floor/unit and/or counseling patient: Coding Level of Care Code 36534 Initial Inpt Care Lvl 3 Diagnoses Abdominal pain R10.84 Abdominal location: generalized Nausea and vomiting R11.2 Vomiting Intractability: non-intractable Vomiting type: unspecified Diarrhea R19.[address] of the abdomen R93.5 (1) Nausea and vomiting Vomiting Intractability: non-intractable Vomiting type: unspecified Qualified Code(s): R11.2 - Nausea with vomiting, unspecified (2) Abdominal pain Abdominal location: generalized Qualified Code(s): R10.84 - Generalized abdominal pain
--- NOTE | 2021-07-01 18:52 | Discharge Summary ---
Date of Service July 01, 2021 Admission HPI Per Admitting Provider The patient is a 20-year-old female with a past medical history, who has had several months of abdominal pain, which is worsened over the past few weeks, and was accompanied by diarrhea early this morning. She has presented to the emergency department on June 09, June 11, and this evening with worsening symptoms. She reports a family history of her mother having some form of inflammatory bowel disease. She denies any recent travels or sick exposures. She is COVID-19 negative in the ED. She does vape marijuana every evening on a prescription basis. Principal Diagnosis Nausea vomiting abdominal pain diarrheaquestion of colitis Discharge Exam In general she is awake and alert pleasant no distress. HEENT normocephalic atraumatic mucous membranes moist. Abdomen is soft mild diffuse tenderness no guarding rebound or rigidity. Neuro without focal deficits. Breathing unlabored no accessory muscle use good effort. Discharge Data Allergies Allergy/AdvReac Type Severity Reaction Status Date / Time No Known Allergies Allergy Unverified 06/30/21 16:33 Consultations 06/30/21 22:36 ED Decision to Admit Stat 06/30/21 23:49 Consult Gastroenterology Routine Ordered Studies 06/30/21 18:05 CT angio abdomen pelvis w con Stat Hospital Course (1) Colitis: Symptoms and CT, as well as family history, could be consistent with IBD. GI was consulted, they will be doing a colonoscopy in the outpatient setting next week. In the meantime, patient symptoms are tolerable with the assistance of dicyclomine and ondansetron. Patient feels okay with going home. Discussed with her that the colonoscopy certainly is the next step to getting to the bottom of the diagnosisand in that respect, while the colonoscopy is set up for next week, it would be reasonable to call the office a few times a week between now and then to see if we could even get it moved up. Stable for home, close outpatient follow-up with GI, dicyclomine up to 4 times daily as needed cramps, ondansetron up to 4 times daily as needed nausea. Total Time Total Time Spent Total Time Spent (In Minutes): <30 Discharge Plan Discharge Items Patient Disposition: Home - Self-Care Reason For Visit: INTRACTABLE NAUSEA, VOMITING AND DIARRHEA Discharge Diagnosis: abdominal symptoms (see below) Activity: Resume your previous activity Non-emergency contact: Primary Care Provider and T[employer]ical [employer] Controller Call non-emergency contact if: you have any medication questions and your symptoms worsen Follow-up/Referrals: [facility] [Primary Care Provider] - Diet: Low Fiber Addtl Attending Provider Instructions: the next step in getting to the bottom of your symptoms will be the colonoscopy. for now, they've got it planned for 07/10, but as we discussed, frequently a polite phone call every day or two can move things up quickly when there have been cancellations. in the meantime, to manage your symptoms, you can use the bentyl (dicyclomine) up to four times a day for cramping/lower abdominal discomfort, and the zofran (ondansetron) up to four times a day for nausea. eat what you can - typically easier to digest, bland, simple foods are going to sit better. definitely make sure you stay hydrated - if you're not able to keep down at least 60-70 ounces of fluid a day, that would be a reasonable time to come back to the hospital. Pending Studies at Discharge: No Stand-Alone Forms: My [facility], Smoking Cessation Medications and DC Order Prescriptions: New dicyclomine 20 mg Tablet 20 mg PO QID PRN (Reason: cramping) Qty: 60 RF: 0 ondansetron 4 mg tablet,disintegrating 4 mg PO QID PRN (Reason: nausea and vomiting) Qty: 30 RF: 0 Continued Suprep Bowel Prep Kit 17.5-3.13-1.6 gram recon soln 177 ml PO .COMPLEX Qty: 354 RF: 0 Discontinued dicyclomine 20 mg tablet 20 mg PO TID PRN (Reason: abdominal cramping) Qty: 15 RF: 0 promethazine 25 mg tablet 25 mg PO TID PRN (Reason: sedation) Qty: 10 RF: 0 Discharge Orders: Discharge Order (Routine); Ordered 07/01/21 Ordered By: Manuel Casarez/Other Patient Handouts: Treating Diarrhea Admission Data Admit Date/Time: 06/30/21 22:23 Attending Provider: Manuel Vega Admit Provider: Michael Whitehead Primary Care Provider: [facility] Other Providers: Michael Whitehead ; Jose Martin Nolasco Other Interventions: Discharge Summary Assessment (RN) Last Done: 07/01/21 13:42 Coding Level of Care Code 19136 OBS Care - Discharge Diagnoses Colitis K52.9
[2021-07-03 08:07] LABS: Marijuana Quant, GCMS Urine 783 ng/mL (<5)
== END 2021-07-01 16:14 | disposition home or self-care (01) ==
LOC: ED 14:42 → 3W 14:42 → SUATTDRO 22:23 → 3W 23:06

== ENCOUNTER 2021-08-20 14:12 | Observation (INO) ==
[2021-08-20 14:53] LABS: Appearance Urine Cloudy (Clear); Bacteria Urine Automated 1+ (Negative); Bilirubin Urine Negative (Negative); Blood Urine Negative (Negative); Color Urine Dark Yellow; Epithelial Cell Urine Auto >30 /lpf (0-5); Glucose Urine UA Negative (Negative); Ketones Urine 2+ (Negative); Leukocyte Esterase Urine Negative (Negative); Nitrite Urine Negative (Negative); Protein Urine 1+ (Negative); Specific Gravity Urine > 1.045 (1.000-1.030); Urobilinogen Urine Negative (Negative)
[2021-08-20 15:04] LABS: Basophils # (auto) 0.01 K/uL (0-0.2); Basophils % (auto) 0.1 %; Eosinophils # (auto) 0.01 K/uL (0-0.5); Eosinophils % (auto) 0.1 %; Hematocrit (blood only) 40.7 % (37-47); Immature Granulocytes # (auto) 0.01 K/uL (0.00-0.02); Immature Granulocytes % (auto) 0.1 %; Lymphocytes # (auto) 0.82 K/uL (1.2-3.4); Lymphocytes % (auto) 8.3 %; Mean Corpuscular Hemoglobin 32.3 pg (25-34); Mean Corpuscular Hgb Conc 34.4 g/dL (32-36); Mean Platelet Volume 9.9 fL (7.4-10.4); Monocytes # (auto) 0.32 K/uL (0.11-0.59); Monocytes % (auto) 3.3 %; Neutrophils # (auto) 8.67 K/uL (1.4-6.5); Neutrophils % (auto) 88.1 %; Platelet Count 256 K/uL (130-400); RDW Coefficient of Variation 12.3 % (11.5-14.5); RDW Standard Deviation 41.6 fL (36.4-46.3); Red Blood Count 4.33 M/uL (4.2-5.4); White Blood Count 9.84 K/uL (4.8-10.8)
--- NOTE | 2021-08-20 15:13 | Emergency Department Note ---
Impression & Plan Intentional overdose of drug in tablet form, Suicide ideation, Tylenol overdose ED Provider Note NAME: KATINA ISRAEL AGE: 20 SEX: F : 2000 ARRIVES VIA: Ambulance INFORMANT: Patient ED PROVIDER(S): Manuel Kilgore DO CHIEF COMPLAINT: Suicide attempt HPI: Patient is a 20-year-old female who presents to the ER for suicide attempt. She admits to suicidal thoughts which have been present for the past 3 days. She has a history of depression as well as IBS. She took 125 mg of her Zoloft which was prescribed when she was about 18. She has not taken for quite some time. She also took 2 g of Motrin/ibuprofen. She denies take anything else. No auditory or visual hallucinations. No headache or change in vision. No chest pain or shortness of breath. No nausea, vomiting, or diarrhea. No dysuria, urgency, or frequency. No other exacerbating or remitting factors. ROS: See above HPI for pertinent positives & negatives. A total of 10 systems reviewed and were otherwise negative. PAST MEDICAL HISTORY:See Below PAST SURGICAL HISTORY:See Below FAMILY HISTORY:See Below SOCIAL HISTORY:See Below HOME MEDICATIONS:See Below ALLERGIES:See Below VITALS:See Below PHYSICAL EXAMINATION: GENERAL: Sitting up in bed, alert, well appearing, well nourished, no distress, non-toxic EYE EXAM: normal conjunctiva. PERRL and EOM's grossly intact. OROPHARYNX: no exudate, no erythema, lips, buccal mucosa, and tongue normal and mucous membranes are moist NECK: supple, no nuchal rigidity, no adenopathy, non-tender LUNGS: Clear to auscultation. Normal chest wall mechanics HEART: no murmurs, S1 normal and S2 normal ABDOMEN: abdomen soft, non-tender, normo-active bowel sounds, no masses, no rebound or guarding. BACK: Back is symmetrical on inspection and there is no deformity, no midline tenderness, no CVA tenderness. SKIN: no rashes and no bruising UPPER EXTREMITIES: upper extremities are grossly normal. LOWER EXTREMITIES: No pitting edema. NEURO EXAM: Normal sensorium, cranial nerves II-XII grossly intact, normal speech, no gross weakness of arms, no gross weakness of legs. PSYCH: Admits to a suicide attempt. MEDICAL DECISION MAKING: Patient is a 20-year-old female who presents the ER for suicidal attempt to kill her self with overdosing on Zoloft and NSAIDs. Blood work was obtained and showed no significant leukocytosis or anemia. INR was unremarkable. BMP along with LFTs bilirubin and TSH was unremarkable. UA was contaminated. Acetaminophen was elevated at 50. She denies taking any Tylenol that she r emembers. Discussed with [facility]. He recommended starting NAC protocol and checking LFTs and INR 4 hours prior to third dose of N- acetylcysteine. This was relayed to the hospitalist need. Patient was updated bedside. Patient was admitted for further work-up. Triage Nursing notes reviewed. Limited review of prior medical records performed Vital Signs: reviewed and remarkable for tachycardic Differential diagnosis: Mood disorder, infection, hypoglycemia, electrolyte abnormalities, cardiac sources, intracerebral event, toxicologic, trauma, neurologic, as well as other pathologies. ER treatment provided: See below Diagnostics interpreted by me: ECG: Sinus rhythm rate of 108 Normal axis No PVCs QTC 455 Cardiac Monitoring: An order was placed for continuous cardiac monitoring. The monitor shows a rate of 102 with sinus rhythm. Laboratory studies: As stated above and show below. Imaging studies: See below Consultation(s): Discussed with the hospitalist in [facility] as discussed above. Procedures: none Critical Care: None Past Med/Surg History Medical History Anxiety Depression Hypertension at age 16, followed with [facility] and cardiac workup that was negative. no medications. no problems currently. Medical marijuana use Post traumatic stress disorder Surgical History S/P wisdom tooth extraction Family History Other No family history of adverse response to anesthesia Social History Smoking Status: Current some day smoker Tobacco Type: Cigarettes Second Hand Exposure: No; Hx Alcohol Use: No Hx Substance Use: Yes Last Used Substance: Days (ago) Last Used Substance Other:: 07/02/21 Preferred Language: Indonesian Communication Ability: Effective Installer M[employer] Trim Required: No Beliefs That Will Affect Care: None marital status: Single Current Living Situation: Other Current Living Situation Comment: Roomates current occupational status: student Feels Safe at Home: Yes Assistive Devices: None Allergies Allergies Allergy/AdvReac Type Severity Reaction Status Date / Time No Known Allergies Allergy Verified 07/16/21 09:23 Home Meds Home Medications Medication Instructions Recorded Confirmed Medical Thc 1 inh PO UD PRN 07/04/21 07/16/21 levonorgestrel (Kyleena) 17.5 mcg INTRAUTERINE UD 07/04/21 07/16/21 Previous Rx's Medication Instructions Recorded dicyclomine 20 mg tablet 20 mg PO QID PRN #60 tab 07/01/21 ondansetron 4 mg disintegrating 4 mg PO QID PRN #30 tab 07/01/21 tablet Results & Data (ED) Vital Signs Vital Signs - 24 hr 08/20/21 14:20 08/20/21 17:00 08/20/21 17:30 Temperature 36.7 C Temperature Source Oral Pulse Rate 114 H 118 H 117 H Pulse Rate from SpO2 Sensor 112 H 117 H Pulse Rhythm Regular Regular Pulse Strength Normal Respiratory Rate 20 16 18 Respiratory Effort / Characteristics Non-Labored Spontaneous Respiratory Depth Normal Respiratory Pattern Regular Blood Pressure 150/101 H 149/90 H 160/79 H Blood Pressure Mean 117 109 106 Blood Pressure Position Sitting Pulse Oximetry 96 99 98 Oxygen Delivery Method Room Air Room Air Sepsis Recent Fever Within 48 Hours No Sepsis New/Unexplained Change in Mental Status N/A Sepsis Action Taken by Nursing No Action Required 08/20/21 18:00 Temperature Temperature Source Pulse Rate 120 H Pulse Rate from SpO2 Sensor 123 H Pulse Rhythm Pulse Strength Respiratory Rate 13 Respiratory Effort / Characteristics Respiratory Depth Respiratory Pattern Blood Pressure 164/93 H Blood Pressure Mean 116 Blood Pressure Position Pulse Oximetry 97 Oxygen Delivery Method Sepsis Recent Fever Within 48 Hours Sepsis New/Unexplained Change in Mental Status Sepsis Action Taken by Nursing Laboratory Data Result diagrams: 08/20/21 14:51 08/20/21 14:51 Lab Results 08/20/21 08/20/21 08/20/21 Range/Units 14:40 14:40 14:51 WBC 9.84 (4.8-10.8) K/uL RBC 4.33 (4.2-5.4) M/uL Hgb 14.0 (12.0-16.0) g/dL Hct 40.7 (37-47) % MCV 94.0 (80-100) fL MCH 32.3 (25-34) pg MCHC 34.4 (32-36) g/dL RDW Std Deviation 41.6 (36.4-46.3) fL RDW Coeff of Claudia 12.3 (11.5-14.5) % Plt Count 256 (130-400) K/uL MPV 9.9 (7.4-10.4) fL Immature Gran % (Auto) 0.1 % Neut % (Auto) 88.1 % Lymph % (Auto) 8.3 % [place] % (Auto) 3.3 % Eos % (Auto) 0.1 % Baso % (Auto) 0.1 % Neut # (Auto) 8.67 H (1.4-6.5) K/uL Lymph # (Auto) 0.82 L (1.2-3.4) K/uL [place] # (Auto) 0.32 (0.11-0.59) K/uL Eos # (Auto) 0.01 (0-0.5) K/uL Baso # (Auto) 0.01 (0-0.2) K/uL Immature Gran # (Auto) 0.01 (0.00-0.02) K/uL PT (9.0-12.0) Seconds INR (0.9-1.1) Sodium (136-145) mmol/L Potassium (3.5-5.1) mmol/L Chloride (98-107) mmol/L Carbon Dioxide (21-32) mmol/L Anion Gap (3-11) BUN (7-18) mg/dl Creatinine (0.6-1.2) mg/dl Est Cr Clr Drug Dosing ml/min Est GFR ( Amer) ml/min Est GFR (Non-Af Amer) ml/min BUN/Creatinine Ratio (10-20) Glucose (70-99) mg/dl Lactate (0.4-2.0) mmol/L Calcium (8.5-10.1) mg/dl Total Bilirubin (0.2-1) mg/dl AST (15-37) U/L ALT (12-78) U/L Alkaline Phosphatase (45-117) U/L Total Protein (6.4-8.2) gm/dl Albumin (3.4-5.0) gm/dl Globulin (2.5-4.0) gm/dl Albumin/Globulin Ratio (0.9-2) TSH (0.300-4.500) uIu/ml Urine Color Dark Yellow Urine Appearance Cloudy A (Clear) Urine pH 5.0 (4.5-7.5) Ur Specific [place] > 1.045 H (1.000-1.030) Urine Protein 1+ H (Negative) Urine Glucose (UA) Negative (Negative) Urine Ketones 2+ H (Negative) Urine Blood Negative (Negative) Urine Nitrite Negative (Negative) Urine Bilirubin Negative (Negative) Urine Urobilinogen Negative (Negative) Ur Leukocyte Esterase Negative (Negative) Urine WBC (Auto) 1-5 (0-5) /hpf Urine RBC (Auto) 5-10 H (0-4) /hpf U Hyaline Cast (Auto) Not Reportable U Epithel Cells (Auto) >30 H (0-5) /lpf Urine Bacteria (Auto) 1+ H (Negative) Ur Renal Epithelial Cell 10-20 H (0-5) /lpf Salicylates (2.8-20) mg/dl Urine Opiates Screen Neg (Neg) Ur Methadone, Qual Neg (Neg) Acetaminophen (10-30) ug/ml Urine Barbiturates Neg (Neg) Ur Phencyclidine (PCP) Neg (Neg) U Amphetamin/Meth Scrn Neg (Neg) MDMA (Ecstasy) Screen Neg (Neg) U Benzodiazepines Scrn Neg (Neg) Ur Cocaine Metabolite Neg (Neg) U Marijuana (THC) Screen Pos H (Neg) Ethyl Alcohol mg/dL (0-3) mg/dl COVID-19 Eval Order SARS-CoV-2, RNA, NAAT (NEGATIVE) 08/20/21 08/20/21 08/20/21 Range/Units 14:51 14:51 14:51 WBC (4.8-10.8) K/uL RBC (4.2-5.4) M/uL Hgb (12.0-16.0) g/dL Hct (37-47) % MCV (80-100) fL MCH (25-34) pg MCHC (32-36) g/dL RDW Std Deviation (36.4-46.3) fL RDW Coeff of Claudia (11.5-14.5) % Plt Count (130-400) K/uL MPV (7.4-10.4) fL Immature Gran % (Auto) % Neut % (Auto) % Lymph % (Auto) % [place] % (Auto) % Eos % (Auto) % Baso % (Auto) % Neut # (Auto) (1.4-6.5) K/uL Lymph # (Auto) (1.2-3.4) K/uL [place] # (Auto) (0.11-0.59) K/uL Eos # (Auto) (0-0.5) K/uL Baso # (Auto) (0-0.2) K/uL Immature Gran # (Auto) (0.00-0.02) K/uL PT (9.0-12.0) Seconds INR (0.9-1.1) Sodium 135 L (136-145) mmol/L Potassium 3.6 (3.5-5.1) mmol/L Chloride 105 (98-107) mmol/L Carbon Dioxide 24 (21-32) mmol/L Anion Gap 6.0 (3-11) BUN 16 (7-18) mg/dl Creatinine 0.98 (0.6-1.2) mg/dl Est Cr Clr Drug Dosing 68.5 ml/min Est GFR ( Amer) 95.6 ml/min Est GFR (Non-Af Amer) 82.5 ml/min BUN/Creatinine Ratio 16.5 (10-20) Glucose 113 H (70-99) mg/dl Lactate (0.4-2.0) mmol/L Calcium 8.9 (8.5-10.1) mg/dl Total Bilirubin 0.5 (0.2-1) mg/dl AST 13 L (15-37) U/L ALT 20 (12-78) U/L Alkaline Phosphatase 61 (45-117) U/L Total Protein 7.5 (6.4-8.2) gm/dl Albumin 3.8 (3.4-5.0) gm/dl Globulin 3.7 (2.5-4.0) gm/dl Albumin/Globulin Ratio 1.0 (0.9-2) TSH 1.470 (0.300-4.500) uIu/ml Urine Color Urine Appearance (Clear) Urine pH (4.5-7.5) Ur Specific [place] (1.000-1.030) Urine Protein (Negative) Urine Glucose (UA) (Negative) Urine Ketones (Negative) Urine Blood (Negative) Urine Nitrite (Negative) Urine Bilirubin (Negative) Urine Urobilinogen (Negative) Ur Leukocyte Esterase (Negative) Urine WBC (Auto) (0-5) /hpf Urine RBC (Auto) (0-4) /hpf U Hyaline Cast (Auto) U Epithel Cells (Auto) (0-5) /lpf Urine Bacteria (Auto) (Negative) Ur Renal Epithelial Cell (0-5) /lpf Salicylates < 1.7 L (2.8-20) mg/dl Urine Opiates Screen (Neg) Ur Methadone, Qual (Neg) Acetaminophen 50 H (10-30) ug/ml Urine Barbiturates (Neg) Ur Phencyclidine (PCP) (Neg) U Amphetamin/Meth Scrn (Neg) MDMA (Ecstasy) Screen (Neg) U Benzodiazepines Scrn (Neg) Ur Cocaine Metabolite (Neg) U Marijuana (THC) Screen (Neg) Ethyl Alcohol mg/dL < 3.0 (0-3) mg/dl COVID-19 Eval Order SARS-CoV-2, RNA, NAAT (NEGATIVE) 08/20/21 08/20/21 08/20/21 Range/Units 15:27 15:27 17:30 WBC (4.8-10.8) K/uL RBC (4.2-5.4) M/uL Hgb (12.0-16.0) g/dL Hct (37-47) % MCV (80-100) fL MCH (25-34) pg MCHC (32-36) g/dL RDW Std Deviation (36.4-46.3) fL RDW Coeff of Claudia (11.5-14.5) % Plt Count (130-400) K/uL MPV (7.4-10.4) fL Immature Gran % (Auto) % Neut % (Auto) % Lymph % (Auto) % [place] % (Auto) % Eos % (Auto) % Baso % (Auto) % Neut # (Auto) (1.4-6.5) K/uL Lymph # (Auto) (1.2-3.4) K/uL [place] # (Auto) (0.11-0.59) K/uL Eos # (Auto) (0-0.5) K/uL Baso # (Auto) (0-0.2) K/uL Immature Gran # (Auto) (0.00-0.02) K/uL PT (9.0-12.0) Seconds INR (0.9-1.1) Sodium (136-145) mmol/L Potassium (3.5-5.1) mmol/L Chloride (98-107) mmol/L Carbon Dioxide (21-32) mmol/L Anion Gap (3-11) BUN (7-18) mg/dl Creatinine (0.6-1.2) mg/dl Est Cr Clr Drug Dosing ml/min Est GFR ( Amer) ml/min Est GFR (Non-Af Amer) ml/min BUN/Creatinine Ratio (10-20) Glucose (70-99) mg/dl Lactate 1.6 (0.4-2.0) mmol/L Calcium (8.5-10.1) mg/dl Total Bilirubin (0.2-1) mg/dl AST (15-37) U/L ALT (12-78) U/L Alkaline Phosphatase (45-117) U/L Total Protein (6.4-8.2) gm/dl Albumin (3.4-5.0) gm/dl Globulin (2.5-4.0) gm/dl Albumin/Globulin Ratio (0.9-2) TSH (0.300-4.500) uIu/ml Urine Color Urine Appearance (Clear) Urine pH (4.5-7.5) Ur Specific [place] (1.000-1.030) Urine Protein (Negative) Urine Glucose (UA) (Negative) Urine Ketones (Negative) Urine Blood (Negative) Urine Nitrite (Negative) Urine Bilirubin (Negative) Urine Urobilinogen (Negative) Ur Leukocyte Esterase (Negative) Urine WBC (Auto) (0-5) /hpf Urine RBC (Auto) (0-4) /hpf U Hyaline Cast (Auto) U Epithel Cells (Auto) (0-5) /lpf Urine Bacteria (Auto) (Negative) Ur Renal Epithelial Cell (0-5) /lpf Salicylates (2.8-20) mg/dl Urine Opiates Screen (Neg) Ur Methadone, Qual (Neg) Acetaminophen (10-30) ug/ml Urine Barbiturates (Neg) Ur Phencyclidine (PCP) (Neg) U Amphetamin/Meth Scrn (Neg) MDMA (Ecstasy) Screen (Neg) U Benzodiazepines Scrn (Neg) Ur Cocaine Metabolite (Neg) U Marijuana (THC) Screen (Neg) Ethyl Alcohol mg/dL (0-3) mg/dl COVID-19 Eval [id number]-2, RNA, NAAT NEGATIVE (NEGATIVE) 08/20/21 Range/Units 17:30 WBC (4.8-10.8) K/uL RBC (4.2-5.4) M/uL Hgb (12.0-16.0) g/dL Hct (37-47) % MCV (80-100) fL MCH (25-34) pg MCHC (32-36) g/dL RDW Std Deviation (36.4-46.3) fL RDW Coeff of Claudia (11.5-14.5) % Plt Count (130-400) K/uL MPV (7.4-10.4) fL Immature Gran % (Auto) % Neut % (Auto) % Lymph % (Auto) % [place] % (Auto) % Eos % (Auto) % Baso % (Auto) % Neut # (Auto) (1.4-6.5) K/uL Lymph # (Auto) (1.2-3.4) K/uL [place] # (Auto) (0.11-0.59) K/uL Eos # (Auto) (0-0.5) K/uL Baso # (Auto) (0-0.2) K/uL Immature Gran # (Auto) (0.00-0.02) K/uL PT 10.7 (9.0-12.0) Seconds INR 1.1 (0.9-1.1) Sodium (136-145) mmol/L Potassium (3.5-5.1) mmol/L Chloride (98-107) mmol/L Carbon Dioxide (21-32) mmol/L Anion Gap (3-11) BUN (7-18) mg/dl Creatinine (0.6-1.2) mg/dl Est Cr Clr Drug Dosing ml/min Est GFR ( Amer) ml/min Est GFR (Non-Af Amer) ml/min BUN/Creatinine Ratio (10-20) Glucose (70-99) mg/dl Lactate (0.4-2.0) mmol/L Calcium (8.5-10.1) mg/dl Total Bilirubin (0.2-1) mg/dl AST (15-37) U/L ALT (12-78) U/L Alkaline Phosphatase (45-117) U/L Total Protein (6.4-8.2) gm/dl Albumin (3.4-5.0) gm/dl Globulin (2.5-4.0) gm/dl Albumin/Globulin Ratio (0.9-2) TSH (0.300-4.500) uIu/ml Urine Color Urine Appearance (Clear) Urine pH (4.5-7.5) Ur Specific [place] (1.000-1.030) Urine Protein (Negative) Urine Glucose (UA) (Negative) Urine Ketones (Negative) Urine Blood (Negative) Urine Nitrite (Negative) Urine Bilirubin (Negative) Urine Urobilinogen (Negative) Ur Leukocyte Esterase (Negative) Urine WBC (Auto) (0-5) /hpf Urine RBC (Auto) (0-4) /hpf U Hyaline Cast (Auto) U Epithel Cells (Auto) (0-5) /lpf Urine Bacteria (Auto) (Negative) Ur Renal Epithelial Cell (0-5) /lpf Salicylates (2.8-20) mg/dl Urine Opiates Screen (Neg) Ur Methadone, Qual (Neg) Acetaminophen (10-30) ug/ml Urine Barbiturates (Neg) Ur Phencyclidine (PCP) (Neg) U Amphetamin/Meth Scrn (Neg) MDMA (Ecstasy) Screen (Neg) U Benzodiazepines Scrn (Neg) Ur Cocaine Metabolite (Neg) U Marijuana (THC) Screen (Neg) Ethyl Alcohol mg/dL (0-3) mg/dl COVID-19 Eval Order SARS-CoV-2, RNA, NAAT (NEGATIVE) Administered Medications Lactated Ringer's (Lr) 1,000 mls @ 100 mls/hr IV .Q10H TRI Stop: 09/19/21 17:29 Last Admin: 08/20/21 17:38 Dose: 100 mls/hr Documented by: [id number] Discontinued Medications Acetylcysteine 7,650 mg/ (Dextrose) 238.25 mls @ 200 mls/hr IV ONCE ONE Stop: 08/20/21 17:45 Last Admin: 08/20/21 17:30 Dose: 200 mls/hr Documented by: [id number] Ondansetron HCl (Ondansetron 4 Mg Od Tab) 4 mg PO NOW STA Stop: 08/20/21 18:11 Last Admin: 08/20/21 18:15 Dose: 4 mg Documented by: [id number] Discharge Plan Visit Data Chief Complaint: Mental Health Evaluation Stated Complaint: OVERDOSE/ MHID ED Provider: Manuel Kilgore Discharge Problem: Intentional overdose of drug in tablet form, Suicide ideation, Tylenol overdose Forms Stand Alone Forms: [facility], Suicide Prevention Resources Prescriptions Prescriptions: No Action dicyclomine 20 mg Tablet 20 mg PO QID PRN (Reason: cramping) Qty: 60 RF: 0 ondansetron 4 mg tablet,disintegrating 4 mg PO QID PRN (Reason: nausea and vomiting) Qty: 30 RF: 0 Kyleena 17.5 mcg/24 hrs (5 yrs) 19.5 mg Intrauterine Device 17.5 mcg INTRAUTERINE UD RF: 0 Medical Thc 1 inh PO UD PRN (Reason: anxiety/PTSD) RF: 0 Referrals [facility]: [facility] [Primary Care Provider] -
[2021-08-20 15:23] LABS: Acetaminophen 50 ug/ml (10-30); Salicylate < 1.7 mg/dl (2.8-20)
[2021-08-20 15:24] LABS: Albumin Level 3.8 gm/dl (3.4-5.0); BUN Creatinine Ratio 16.5 (10-20); Calcium 8.9 mg/dl (8.5-10.1); Creatinine Clr Calc Pharmacy 68.5 ml/min; Est GFR (African American) 95.6 ml/min; Est GFR (Non-African American) 82.5 ml/min; Potassium 3.6 mmol/L (3.5-5.1)
[2021-08-20 15:34] LABS: Bilirubin,Total 0.5 mg/dl (0.2-1); Globulin 3.7 gm/dl (2.5-4.0); Thyroid Stimulating Hormone 1.47 uIu/ml (0.300-4.500); Total Protein 7.5 gm/dl (6.4-8.2)
[2021-08-20 15:35] LABS: Amphetamines+Metham, Urine Neg (Neg); Barbiturates, Urine Neg (Neg); Benzodiazepine, Urine Neg (Neg); Cocaine, Urine Neg (Neg); MDMA (Ecstacy), Urine Neg (Neg); Methadone, Urine Neg (Neg); Opiate, Urine Neg (Neg); Phencyclidine, Urine Neg (Neg)
[2021-08-20] MEDS ORDERED: ACETYLCYSTEINE IV ONE ×3 (16:34→21:35)
[2021-08-20] MEDS ORDERED: DEXTROSE 5% IV ONE ×3 (16:34→21:35)
[2021-08-20] MEDS ORDERED: AcetylCYSTEINE IV 21 HR REGIMEN (>40KG) IV STA (16:34)
--- NOTE | 2021-08-20 16:58 | Electrocardiogram Report ---
Test Reason : Blood Pressure : / mmHG Vent. Rate : 108 BPM Atrial Rate : 108 BPM P-R Int : 124 ms QRS Dur : 074 ms QT Int : 340 ms P-R-T Axes : 072 060 037 degrees QTc Int : 455 ms Sinus tachycardia Possible Left atrial enlargement Borderline ECG No previous ECGs available Confirmed by Meliton Rasmussen ([id number]) on 08/20/2021 4:58:22 PM Referred By: ER Confirmed By:Pietro Rasmussen
[2021-08-20] MEDS: LACTATED RINGER'S 1,000 ML IV SCH (17:38)
--- NOTE | 2021-08-20 17:42 | History & Physical Report ---
Date of Service August 20, 2021 Assessment & Plan (1) Intentional overdose of drug in tablet form: Plan: Intentional ingestion of multiple medications with intention of self harm - Reported the following: Zoloft 125mg, Motrin(unkown), Pain reliver PM (10 tabs) unknown strength - Supportive care for the above- LR at 100ml per hour - follow hemodynamics - Qt on ECG 435 (2) Tylenol overdose: Plan: As above- likely the "pain reliever PM"- 500mg of Tylenol/25mg of Benadryl = 5GM of Tylenol - Acetaminophen level at 3-4 hours post ingestion 50 UG/ML - LFTs are normal - Lactate- 1.6 - INR- 1.1 - Glucose 113 Patient was not really forth coming with time and medication amount- NAC therapy was instituted - level 50 UG/ml - 150mg/kg over 1 hour, then 50mg/kg over 4 hour, and 100mg/kg over 16 hour infusion. - will check Tylenol level at 12 hour dominick as well as LFTs - Tylenol level and LFTs at end of infusion - Stop therapy when Tylenol level <10 and LFTs stabilized or decreasing (not elevated currently) - If Tylenol level not <10, repeat 3rd dose (3) Suicide ideation: Plan: History of ideations she reports, but "has not had them in a while" - Continue suicide precautions - Pysch consult placed - Patient feels safe at this time and is open to having a therapist locally to help her (4) IBS (irritable bowel syndrome): Plan: Chronic history of abdominal pain with multiple imaging performed over the past few months - Initially struggled with diarrhea and last GI appt had some constipation- Add back her metamucil - she is on dicyclomine for her cramping abdominal pain symptoms - has followed up with GI was started on FODMAP diet/fiber/ and had a colonoscopy - She had 1 polyp at that time and negative biopsies x3 sites. (5) Abnormal urinalysis: Plan: Bacterial 1+ with NO LE and Nitr, and >30 epithelial cells - hydrate with LR tonight with elevated Spec grav - resend clean catch urine in the morning History of Present Illness Primary Care Provider: [facility] 20 YOF with past medical history of: PTSD (on medical marijuana- [facility]), Depression, suicidal ideations, IBS/cramping on dicyclomine. Patient comes to the EMD today after she told her Ex-boyfriend that she took a bunch of pills, and he then told her mother, and EMS was sent to pick her up. Patient states that she has been having suicidal thoughts since over the weekend that started on Wednesday or Wednesday. Her plan was to "take pills". She endorses that she has had suicidal thoughts in the past when she was around 7th grade, but has not had much of them since then. She does endorse that around 11:45 AM on she took 125 mg of Zoloft, Motrin, and 10 tablets of "pain reliever PM". She also reports 4 episodes of vomiting at home while waiting for EMS. In the EMD she had a tox screen completed with that revealed a Tylenol level of 50 UG/ML, and (+) for marijuana. Her LFTs are currently normal at . Poison control was contacted by the EMD and was started on NAC therapy IV for 21 hours. During admission her mother did send her a picture of the bottle- which was Tylenol 500mg with Benadryl 25mg= as above she took 10 of these. The patient is up here for school at [facility] [employer], she is originally from [place] she reports. Patient does endorse stressors in her life as relationship issues with her Ex-boyfriend, falling behind in school work, getting kicked out of her apartment, abdominal pain with her IBS, and inability to see her Ex-boyfriend this morning at his hearing. She has had her COVID vaccine and her COVID test on admission is: NEGATIVE Allergies Allergy/AdvReac Type Severity Reaction Status Date / Time No Known Allergies Allergy Verified 07/16/21 09:23 Home Medications Medication Instructions Recorded Confirmed Type dicyclomine 20 mg tablet 20 mg PO QID PRN #60 tab 07/01/21 07/16/21 Rx ondansetron 4 mg disintegrating 4 mg PO QID PRN #30 tab 07/01/21 07/16/21 Rx tablet Medical Thc 1 inh PO UD PRN 07/04/21 07/16/21 History levonorgestrel (Kyleena) 17.5 mcg INTRAUTERINE UD 07/04/21 07/16/21 History Past Med/Surg History Medical History Anxiety Depression Hypertension at age 16, followed with [facility] and cardiac workup that was negative. no medications. no problems currently. Medical marijuana use Post traumatic stress disorder Surgical History S/P wisdom tooth extraction Family History (Updated 08/20/21 @ 22:05 by Sonny Gonzales) Other No family history of adverse response to anesthesia No pertinent family history Social History Smoking Status: Current some day smoker Tobacco Type: Cigarettes Second Hand Exposure: No; Hx Alcohol Use: No Hx Substance Use: Yes Last Used Substance: Days (ago) Last Used Substance Other:: 07/02/21 Preferred Language: Thai Communication Ability: Effective Advertising Sales Agent Required: No Beliefs That Will Affect Care: None marital status: Single Current Living Situation: Other Current Living Situation Comment: Roomates current occupational status: student Feels Safe at Home: Yes Assistive Devices: None Review of Systems Review of Systems: REVIEW OF SYSTEMS: Constitutional: No fever, sweats or chills Eyes: No diplopia, no worsening or blurred vision ENT: normal hearing, no trouble swallowing Respiratory: No cough, sputum, dyspnea at rest or on exertion Cardiovascular: No chest pain, tightness or palpitations Abdomen: No pain, nausea, vomiting, diarrhea or constipation Musculoskeletal: No joint pain, calf pain, swelling Neurologic: No weakness, numbness/tingling, or balance problems Psychiatric: (+) depression, suicidal thoughts, stress Skin: No rash or itch Physical Exam Physical Exam: PHYSICAL EXAM: General: awake, alert, no distress Head: Normocephalic, atraumatic ENT: PERRL, EOMI, no icterus, no pharyngeal exudate, mucous membranes dry Neuro: AAO x 3, speech clear and appropriate, strength intact bilaterally 5/5, sensation intact and equal all extremities and dermatomes, Chest: equal rise and fall of the chest, no accessory muscle use, no heaves or thrills, Clear to auscultation, on room air, Cardiac: Regular rate and rhythm, telemetry reviewed- sinus tach, skin warm dry, cap refill <3 seconds, peripheral pulses, +2 no JVD, no murmur, no edema GI: NABS x 4 quadrants, soft, nontender to palpation, no rebound, guarding or tenderness, liver border normal, no epigastric pain : denies any urinary symptoms- will repeat UA, Spontaneously voiding, no pain, no CVA tenderness, Extremities: Normal inspection, no peripheral edema or erythema, calfs nontender to palpation Psych: anxious now, feels safe and that she does not want to hurt herself, Skin: no rash or erythema Results & Data Results & Data ([facility]) Vital Signs (Past 12 Hours) Vital Signs Temp Pulse Resp BP Pulse Ox 08/20/21 17:00 118 H 16 149/90 H 99 08/20/21 14:20 36.7 C 114 H 20 150/101 H 96 Laboratory Results Abnormal lab results 08/20/21 08/20/21 08/20/21 Range/Units 14:40 14:40 14:51 Neut # (Auto) 8.67 H (1.4-6.5) K/uL Lymph # (Auto) 0.82 L (1.2-3.4) K/uL Sodium (136-145) mmol/L Glucose (70-99) mg/dl AST (15-37) U/L Urine Appearance Cloudy A (Clear) Ur Specific Pickett > 1.045 H (1.000-1.030) Urine Protein 1+ H (Negative) Urine Ketones 2+ H (Negative) Urine RBC (Auto) 5-10 H (0-4) /hpf U Epithel Cells (Auto) >30 H (0-5) /lpf Urine Bacteria (Auto) 1+ H (Negative) Ur Renal Epithelial Cell 10-20 H (0-5) /lpf Salicylates (2.8-20) mg/dl Acetaminophen (10-30) ug/ml U Marijuana (THC) Screen Pos H (Neg) 08/20/21 08/20/21 Range/Units 14:51 14:51 Neut # (Auto) (1.4-6.5) K/uL Lymph # (Auto) (1.2-3.4) K/uL Sodium 135 L (136-145) mmol/L Glucose 113 H (70-99) mg/dl AST 13 L (15-37) U/L Urine Appearance (Clear) Ur Specific Pickett (1.000-1.030) Urine Protein (Negative) Urine Ketones (Negative) Urine RBC (Auto) (0-4) /hpf U Epithel Cells (Auto) (0-5) /lpf Urine Bacteria (Auto) (Negative) Ur Renal Epithelial Cell (0-5) /lpf Salicylates < 1.7 L (2.8-20) mg/dl Acetaminophen 50 H (10-30) ug/ml U Marijuana (THC) Screen (Neg) Diagnostic Findings None to review- none indicated Medications Administered Home Medications dicyclomine 20 mg tablet 20 mg PO QID PRN #60 tab 07/01/21 [Rx Confirmed 07/16/21] ondansetron 4 mg disintegrating tablet 4 mg PO QID PRN #30 tab 07/01/21 [Rx Confirmed 07/16/21] Medical Thc 1 inh PO UD PRN 07/04/21 [History Confirmed 07/16/21] levonorgestrel (Kyleena) 17.5 mcg INTRAUTERINE UD 07/04/21 [History Confirmed 07/16/21] Active Medications Acetylcysteine 2,550 mg/ (Dextrose) 512.75 mls @ 125 mls/hr IV ONCE ONE Stop: 08/20/21 21:41 Acetylcysteine 5,100 mg/ (Dextrose) 1,025.5 mls @ 62.5 mls/hr IV ONCE ONE Stop: 08/21/21 13:59 Lactated Ringer's (Lr) 1,000 mls @ 100 mls/hr IV .Q10H TRI Stop: 09/19/21 17:29 Last Admin: 08/20/21 17:38 Dose: 100 mls/hr Documented by: Lactated Ringer's (Lr) 1,000 mls @ 100 mls/hr IV .Q10H TRI Stop: 09/19/21 17:29 Last Admin: 08/20/21 17:38 Dose: 100 mls/hr Documented by: [id number] Discontinued Medications Acetylcysteine 7,650 mg/ (Dextrose) 238.25 mls @ 200 mls/hr IV ONCE ONE Stop: 08/20/21 17:45 Last Admin: 08/20/21 17:30 Dose: 200 mls/hr Documented by: [id number] ECG Additional Comments: Vent. Rate : 108 BPM Atrial Rate : 108 BPM P-R Int : 124 ms QRS Dur : 074 ms QT Int : 340 ms P-R-T Axes : 072 060 037 degrees QTc Int : 455 ms Sinus tachycardia Possible Left atrial enlargement Borderline ECG Code Status & VTE Plan Code Status CODE: FULL VTE: SCDS VTE Prophylaxis Plan VTE Prophylaxis will be ordered: Yes Supervising Physician Co-Signing Physician Notes Attending Attestation & Admission Note - Pt seen/examined, chart reviewed, care plan d/w ROSALIO Harvey. I agree w/ the soto components of his documentation. 20yo female with h/o PTSD and depression presents after a suicide attempt by way of ingestion. About 1145am this am she took 125mg of zoloft, 5000mg of tylenol/250mg benadryl, and motrin. She had emesis at home several times, and in the ER she had nausea with mild stomach discomfort. Initial tylenol level ~4 hours post-ingestion was 50. Poison Control was contacted, and they recommended NAC protocol. Of note - LFTs remain normal thus far. PMH/PSH/allergies/meds/sochx/famhx - reviewed vitals - tachy, BP wnl gen - NAD eyes - dilated, about 4mm b/l mouth - MM dry heart - tachy, s1 s2, 1/6 PRABHAKAR LSB lungs - CTA b/l abd - soft NT ND BS+ ext - scant tremor, pulses 2+ b/l, no edema psych - a/o x 3 A/P: 1. suicide attempt by way of ingestion. 2. tylenol overdose with initial level of 50. 3. depression with suicidal ideation. 4. PTSD. 5. asymptomatic bacteriuria. 6. tachycardia likely to benadryl overdose. NAC protocol, serial tylenol levels, serial LFTs. IV fluids. IV pepcid. Diet as tolerated. Suicide precautions, 1:1 observation, psych consult. Holding zoloft, etc. Antiemetics as needed. Sonny Gonzales MD PG Care Time/CCT Total # of Minutes Spent Total Time Spent with Patient: Total time spent is greater than 50% in coordination of care (as documented) at patient's floor/unit and/or counseling patient: Coding Level of Care Code 36619 Initial Inpt Care Lvl 3 Diagnoses Intentional overdose of drug in tablet form T50.902A Suicide ideation R45.851 Tylenol overdose T39.1X1A IBS (irritable bowel syndrome) K58.9 Abnormal urinalysis R82.90
[2021-08-20 17:53] LABS: INR 1.1 (0.9-1.1); Prothrombin Time 10.7 Seconds (9.0-12.0)
[2021-08-20] MEDS ORDERED: ONDANSETRON 4 MG OD TAB PO STA (18:10)
[2021-08-20] MEDS ORDERED: FAMOTIDINE 20 MG in SYRINGE 3 ML IV ONE (18:45)
[2021-08-20] MEDS ORDERED: FAMOTIDINE 20MG/5ML IV PUSH IV ONE (18:46)
[2021-08-20 21:44] LABS: Appearance Urine Clear (Clear); Bilirubin Urine Negative (Negative); Blood Urine Negative (Negative); Color Urine Yellow; Glucose Urine UA Negative (Negative); Ketones Urine 3+ (Negative); Leukocyte Esterase Urine Negative (Negative); Nitrite Urine Negative (Negative); Protein Urine Negative (Negative); Specific Gravity Urine 1.021 (1.000-1.030); Urobilinogen Urine Negative (Negative); pH Urine 7.5 (4.5-7.5)
[2021-08-21] MEDS: LACTATED RINGER'S 1,000 ML IV SCH ×3 (03:16→21:49)
[2021-08-21 06:03] LABS: Basophils # (auto) 0.01 K/uL (0-0.2); Basophils % (auto) 0.1 %; Eosinophils # (auto) 0.02 K/uL (0-0.5); Eosinophils % (auto) 0.2 %; Hematocrit (blood only) 37.6 % (37-47); Immature Granulocytes # (auto) 0.01 K/uL (0.00-0.02); Immature Granulocytes % (auto) 0.1 %; Lymphocytes # (auto) 2.71 K/uL (1.2-3.4); Lymphocytes % (auto) 25.1 %; Mean Corpuscular Hemoglobin 32.3 pg (25-34); Mean Corpuscular Hgb Conc 34.6 g/dL (32-36); Mean Corpuscular Volume 93.5 fL (80-100); Mean Platelet Volume 9.9 fL (7.4-10.4); Monocytes # (auto) 0.82 K/uL (0.11-0.59); Monocytes % (auto) 7.6 %; Neutrophils # (auto) 7.21 K/uL (1.4-6.5); Neutrophils % (auto) 66.9 %; Platelet Count 250 K/uL (130-400); RDW Coefficient of Variation 12.4 % (11.5-14.5); RDW Standard Deviation 42.7 fL (36.4-46.3); Red Blood Count 4.02 M/uL (4.2-5.4); White Blood Count 10.78 K/uL (4.8-10.8)
[2021-08-21 06:52] LABS: Albumin Level 3.3 gm/dl (3.4-5.0); BUN Creatinine Ratio 10.9 (10-20); BUN Creatinine Ratio 9.5 (10-20); Bilirubin,Total 0.3 mg/dl (0.2-1); Calcium 8.7 mg/dl (8.5-10.1); Calcium 8.9 mg/dl (8.5-10.1); Creatinine Clr Calc Pharmacy 80.9 ml/min; Creatinine Clr Calc Pharmacy 83.9 ml/min; Est GFR (African American) 116.8 ml/min; Est GFR (African American) 122.2 ml/min; Est GFR (Non-African American) 100.8 ml/min; Est GFR (Non-African American) 105.4 ml/min; Globulin 3.4 gm/dl (2.5-4.0); Magnesium 2.3 mg/dl (1.8-2.4); Potassium 3.3 mmol/L (3.5-5.1); Total Protein 6.7 gm/dl (6.4-8.2)
--- NOTE | 2021-08-21 07:00 | Hospitalist Progress Note ---
Date of Service August 21, 2021 Assessment & Plan (1) Intentional overdose of drug in tablet form: Plan: 20yo female presents after intentional overdose of combination acetaminophen- diphenhydramine tablets. Intentional overdose of acetaminophen, diphenhydramine Patient with intentional overdose of approximately ten combination acetaminophen-diphenhydramine tablets (roughly 5g APAP and 250mg diphenhydramine) Reportedly in response to significant psychosocial stressors e.g. recent breakup, unstable housing situation, others APAP levels at 3-4 hours post-ingestion: 50ug/mL On admission, LFTs wnl, lactate 1.6, INR 1.1, glucose 113 NAC therapy initiated on admission due to concerns over true number of pills ingested Repeat APAP levels undetectable, NAC therapy discontinued Tachycardia on arrival has since resolved and has stayed wnl for ~18 hours Given resolution of tachycardia, patient is no longer at risk for anticholinergic toxicity Patient is medically cleared for discharge; will downgrade off telemetry in the meantime Parasuicidal behavior Patient with intentional overdose as described above in response to significant psychosocial stressors Psychiatry consulted, appreciate recommendations Continue 1:1 sit, safety precautions Nausea Patient with chronic nausea, currently being worked up by outpatient GI Continue home dicyclomine Continue zofran prn FEN: regular diet Code status: full code DVT ppx: not indicated Consults: psychiatry PT/OT: not indicated Case management: following Dispo: med/surg Admission and Anticipated Discharge Date Admission Date: August 20, 2021 Supervising Physician Co-Signing Physician Notes Patient seen and examined with PGY 2 Dr. Zhou. Agree with history, exam findings, assessment and plan of care as outlined. Overall feels well. Does have some mild nausea which is baseline for her. Denies chest pain, shortness of breath, abdominal pain. Denies vomiting. Vital signs and nursing notes reviewed Well-appearing. Heart with regular rate and rhythm. No murmur. Lungs are clear to auscultation in all lung magdaleno. Mood and affect are congruent. Labs and imaging reviewed. 1. intentional overdose--acetaminophen, diphenhydramine. s/p NAC treatment. Tylenol level decreased. Tachycardia resolved. Appreciate psychiatry recommendations. 2. Nausea. chronic. zofran, dicylomine. Dispo: medically stable, plan for transfer to tomorrow if there is a bed available. Subjective Patient seen and evaluated at bedside this morning. Today, patient feels well overall and complains only of mild nausea, which is normal for her. Patient is in a "decent" mood today and reports not feeling very anxious. No other complaints today. Patient denies CP, SOB, abdominal pain, vomiting, lightheadedness, dizziness, and diarrhea. Review of Systems Review of Systems: See HPI Physical Exam Physical Exam: Constitutional: well-appearing, no acute distress CV: regular rhythm, no murmur appreciated, extremities well-perfused, no LE edema Resp: CTABL, no wheezes/rales/rhonchi appreciated, no increased work of breathing GI: soft, nondistended, nontender, BS normoactive Skin: warm, dry, no rash appreciated Neuro: AOx4, no focal neurological deficits appreciated Appearance: well-groomed, appropriately dressed Behavior: calm, cooperative, eye contact good Mood: "decent" Affect: pleasant, affect congruent with mood Speech: appropriate rate/quantity/volume Thought process: linear, coherent Thought content: appropriate to topic of discussion, denies SI/HI at this time Cognition: alert, focused, short- and long-term memory grossly intact, abstraction intact Results & Data Results & Data ([facility]) Vital Signs (Past 12 Hours) Vital Signs Temp Pulse Resp BP Pulse Ox 08/21/21 02:06 36.7 C 74 16 122/73 96 08/21/21 01:38 36.8 C 90 16 132/94 95 08/20/21 23:06 36.7 C 83 16 143/87 H 97 08/20/21 20:00 94 H 20 136/90 99 Resident Activity Tracking Resident Involvement: Resident Care Provided Care Provided: Adult [facility]
[2021-08-21] MEDS: ONDANSETRON INJ 2 MG/ML 2 ML VIAL IV PRN (08:29)
[2021-08-21] MEDS: PSYLLIUM 58.6% POWDER PACKET PO SCH (08:29)
[2021-08-21] MEDS: POTASSIUM CHLORIDE CRTAB 20 MEQ TABCR PO SCH (08:29)
[2021-08-21] MEDS: FAMOTIDINE 20 MG in SYRINGE 3 ML IV SCH (08:33)
[2021-08-21 10:51] LABS: INR 1.1 (0.9-1.1); Prothrombin Time 10.8 Seconds (9.0-12.0)
--- NOTE | 2021-08-21 10:52 | Electrocardiogram Report ---
Test Reason : Blood Pressure : / mmHG Vent. Rate : 081 BPM Atrial Rate : 081 BPM P-R Int : 134 ms QRS Dur : 082 ms QT Int : 374 ms P-R-T Axes : 055 063 002 degrees QTc Int : 434 ms Normal sinus rhythm with sinus arrhythmia Normal ECG When compared with ECG of 20-AUG-2021 15:28, Non-specific change in ST segment in Anterior leads Confirmed by Meliton Rasmussen ([id number]) on 08/21/2021 10:51:30 AM Referred By: REFERRED SELF Confirmed By:Pietro Rasmussen
[2021-08-21 11:10] LABS: Alanine Aminotransferase 18 U/L (12-78); Albumin Level 3.3 gm/dl (3.4-5.0); Alkaline Phosphatase 51 U/L (45-117); Bilirubin,Total 0.4 mg/dl (0.2-1); Total Protein 6.9 gm/dl (6.4-8.2)
[2021-08-21 11:19] LABS: Aspartate Aminotransferase 10 U/L (15-37); Bilirubin Direct < 0.1 mg/dl (0-0.2)
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
[2021-08-21 15:10] LABS: Albumin Level 3.3 gm/dl (3.4-5.0); BUN Creatinine Ratio 7.1 (10-20); Calcium 8.8 mg/dl (8.5-10.1); Creatinine Clr Calc Pharmacy 83.9 ml/min; Est GFR (African American) 122.2 ml/min; Est GFR (Non-African American) 105.4 ml/min; Potassium 4.3 mmol/L (3.5-5.1)
[2021-08-21 15:12] LABS: Bilirubin,Total 0.3 mg/dl (0.2-1); Globulin 3.4 gm/dl (2.5-4.0); Total Protein 6.7 gm/dl (6.4-8.2)
[2021-08-22 06:11] LABS: Basophils # (auto) 0.02 K/uL (0-0.2); Basophils % (auto) 0.3 %; Eosinophils # (auto) 0.07 K/uL (0-0.5); Hematocrit (blood only) 36.8 % (37-47); Hemoglobin 12.2 g/dL (12.0-16.0); Immature Granulocytes # (auto) 0.01 K/uL (0.00-0.02); Immature Granulocytes % (auto) 0.1 %; Lymphocytes # (auto) 2.64 K/uL (1.2-3.4); Mean Corpuscular Hemoglobin 31.8 pg (25-34); Mean Corpuscular Hgb Conc 33.2 g/dL (32-36); Mean Corpuscular Volume 95.8 fL (80-100); Mean Platelet Volume 10.2 fL (7.4-10.4); Monocytes # (auto) 0.51 K/uL (0.11-0.59); Monocytes % (auto) 7.3 %; Neutrophils % (auto) 53.3 %; Platelet Count 208 K/uL (130-400); RDW Coefficient of Variation 12.7 % (11.5-14.5); RDW Standard Deviation 44.1 fL (36.4-46.3); Red Blood Count 3.84 M/uL (4.2-5.4); White Blood Count 6.95 K/uL (4.8-10.8)
[2021-08-22] MEDS ORDERED: ACETAMINOPHEN 325 MG TAB PO PRN (06:55)
[2021-08-22 07:03] LABS: BUN Creatinine Ratio 8.2 (10-20); Calcium 8.6 mg/dl (8.5-10.1); Creatinine Clr Calc Pharmacy 106.6 ml/min; Est GFR (African American) 148.6 ml/min; Est GFR (Non-African American) 128.2 ml/min; Magnesium 1.9 mg/dl (1.8-2.4); Phosphorus 3.3 mg/dl (2.5-4.9); Potassium 3.6 mmol/L (3.5-5.1)
[2021-08-22] MEDS: LACTATED RINGER'S 1,000 ML IV SCH (07:32)
[2021-08-22] MEDS: PSYLLIUM 58.6% POWDER PACKET PO SCH (08:58)
[2021-08-22] MEDS: POTASSIUM CHLORIDE CRTAB 20 MEQ TABCR PO SCH (08:59)
[2021-08-22] MEDS: FAMOTIDINE 20 MG in SYRINGE 3 ML IV SCH (09:01)
[2021-08-22] MEDS: ONDANSETRON INJ 2 MG/ML 2 ML VIAL IV PRN (09:05)
[2021-08-22] MEDS ORDERED: POLYETHYLENE (MIRALAX) 17 GM PACK PO PRN (09:54)
--- NOTE | 2021-08-22 11:17 | Psychiatric Progress Note ---
Date of Service August 22, 2021 Impression / Recommendations Impression 20 yo woman with history of PTSD, depression and self-injurious behavior and IBS who was admitted following a suicide attempt via polypharmacy ingestion. Psychiatry was consulted for risk assessment/dispo recs. Diagnostically consistent with MDD. Acute risk of self-harm is high given suicide attempt of lethal potential, recent psychosocial stressors, no outpatient providers and ongoing ambivalence about being alive. The patient is deemed unstable and requires psychiatric hospitalization for diagnostic clarification, safety and stabilization, medication management and development of further coping skills. Now medically clearand agreeable to voluntary psych inpatient treatment. Process of seeking inpatient psychiatry placement has begun. (1) MDD (major depressive disorder), recurrent episode: (2) Suicide attempt: -continue 1:1, may not leave AMA -plan for inpatient psychiatric treatment, 201 status, referrals in process -no psychiatric medication at this time Risk Factors Assessment Do You Have Access To A Gun?: No Interval History Identifying Information 20 yo woman with history of PTSD, depression and self-injurious behavior and IBS who was admitted following a suicide attempt via polypharmacy ingestion. Psychiatry was consulted for risk assessment/dispo recs. Chief Complaint "I'm ok". Subjective Subjective Patient was seen & assessed and interval progress reviewed. She endorses ongoing depressed mood and continues to feel ambivalent about surviving the suicide attempt. She remains agreeable to psychiatric hospitalization. Had difficulty sleeping last night. Endorses constipation this morning which has reduced her appetite. Denies any other pain. Her mother may visit her later today. Physical Exam Psychiatric Orientation: alert and oriented x 3 Apperance: appropriately dressed and appropriately groomed Eye Contact: good eye contact Motor Behavior: steady gait and station and no abnormal motor movements Speech: normal rate/rhythm/volume of speech Affect: + depressed affect Mood: + depressed mood and + anxious mood Thought Process: goal directed thought process Thought Content: reality based without delusions Suicidal Thoughts: denies suicidal plan and denies suicidal intent; + reports suicidal thoughts Homicidal Thoughts: denies homicidal thoughts Hallucinations: no auditory hallucinations and no visual hallucinations Cognition: recent memory grossly intact, remote memory grossly intact, attention grossly intact and language grossly intact Estimated Intelligence: consistent with education level Insight: + fair insight Judgement: + fair judgement Vital Signs (Past 24 Hours) Last Vital Signs Temp 36.6 C 08/22/21 08:33 Pulse 98 H 08/22/21 08:33 Resp 16 08/22/21 08:33 BP 112/68 08/22/21 08:33 Pulse Ox 99 08/22/21 08:33 Results & Data ([facility]) Laboratory Results Laboratory Results - last 24 hr 08/21/21 08/21/21 08/21/21 10:24 14:34 14:34 WBC RBC Hgb Hct MCV MCH MCHC RDW Std Deviation RDW Coeff of Claudia Plt Count MPV Immature Gran % (Auto) Neut % (Auto) Lymph % (Auto) Smyth % (Auto) Eos % (Auto) Baso % (Auto) Neut # (Auto) Lymph # (Auto) Smyth # (Auto) Eos # (Auto) Baso # (Auto) Immature Gran # (Auto) Sodium 141 Potassium 4.3 D Chloride 112 H Carbon Dioxide 22 Anion Gap 7.0 BUN 6 L Creatinine 0.80 Est Cr Clr Drug Dosing 83.9 Est GFR ( Amer) 122.2 Est GFR (Non-Af Amer) 105.4 BUN/Creatinine Ratio 7.1 L Glucose 86 Calcium 8.8 Phosphorus Magnesium Total Bilirubin 0.3 Direct Bilirubin < 0.1 AST 10 L 6 L ALT 16 Alkaline Phosphatase 53 Total Protein 6.7 Albumin 3.3 L Globulin 3.4 Albumin/Globulin Ratio 1.0 Acetaminophen 3 L 08/22/21 08/22/21 05:34 05:34 WBC 6.95 RBC 3.84 L Hgb 12.2 Hct 36.8 L MCV 95.8 MCH 31.8 MCHC 33.2 RDW Std Deviation 44.1 RDW Coeff of Claudia 12.7 Plt Count 208 MPV 10.2 Immature Gran % (Auto) 0.1 Neut % (Auto) 53.3 Lymph % (Auto) 38.0 Smyth % (Auto) 7.3 Eos % (Auto) 1.0 Baso % (Auto) 0.3 Neut # (Auto) 3.70 Lymph # (Auto) 2.64 Smyth # (Auto) 0.51 Eos # (Auto) 0.07 Baso # (Auto) 0.02 Immature Gran # (Auto) 0.01 Sodium 137 Potassium 3.6 D Chloride 106 Carbon Dioxide 25 Anion Gap 6.0 BUN 5 L Creatinine 0.63 Est Cr Clr Drug Dosing 106.6 Est GFR ( Amer) 148.6 Est GFR (Non-Af Amer) 128.2 BUN/Creatinine Ratio 8.2 L Glucose 84 Calcium 8.6 Phosphorus 3.3 Magnesium 1.9 Total Bilirubin Direct Bilirubin AST ALT Alkaline Phosphatase Total Protein Albumin Globulin Albumin/Globulin Ratio Acetaminophen Current Inpatient Medications Current Inpatient Medications: Current Inpatient Medications Acetaminophen (Acetaminophen 325 Mg Tab) 650 mg PO Q4H PRN PRN Reason: Pain Stop: 09/21/21 06:54 Lactated Ringer's (Lr) 1,000 mls @ 100 mls/hr IV .Q10H TRI Stop: 09/19/21 17:29 Last Admin: 08/22/21 07:32 Dose: 100 mls/hr Documented by: Famotidine 20 mg/ Syringe 5 mls @ 2.5 mls/min IV DAILY [facility] Stop: 09/20/21 08:59 Last Admin: 08/22/21 09:01 Dose: 2.5 mls/min Documented by: Ondansetron HCl (Ondansetron Inj 2 Mg/Ml 2 Ml Vial) 4 mg IV Q4H PRN PRN Reason: Nausea Stop: 09/20/21 08:04 Last Admin: 08/22/21 09:05 Dose: 4 mg Documented by: Polyethylene Glycol (Polyethylene (Miralax) 17 Gm Pack) 34 gm PO DAILY PRN PRN Reason: Constipation Stop: 09/21/21 09:53 Last Admin: 08/22/21 10:13 Dose: 34 gm Documented by: Potassium Chloride (Potassium Chloride Crtab 20 Meq Tabcr) 40 meq PO QAM [facility] Stop: 09/20/21 08:59 Last Admin: 08/22/21 08:59 Dose: 40 meq Documented by: Psyllium Hydrophilic Mucilloid (Psyllium 58.6% Powder Packet) 1 pkt PO QAM [facility] Stop: 09/20/21 08:59 Last Admin: 08/22/21 08:58 Dose: 1 pkt Documented by:
--- NOTE | 2021-08-22 11:28 | Hospitalist Progress Note ---
Date of Service August 22, 2021 Assessment & Plan (1) Intentional overdose of drug in tablet form: Plan: 20yo female presents after intentional overdose of combination acetaminophen- diphenhydramine tablets. Intentional overdose of acetaminophen, diphenhydramine Patient with intentional overdose of approximately ten combination acetaminophen-diphenhydramine tablets (roughly 5g APAP and 250mg diphenhydramine) Reportedly in response to significant psychosocial stressors e.g. recent breakup, unstable housing situation, others APAP levels at 3-4 hours post-ingestion: 50ug/mL On admission, LFTs wnl, lactate 1.6, INR 1.1, glucose 113 NAC therapy initiated on admission due to concerns over true number of pills ingested Repeat APAP levels undetectable, NAC therapy discontinued Tachycardia on arrival has since resolved and has stayed wnl for ~18 hours Given resolution of tachycardia, patient is no longer at risk for anticholinergic toxicity Patient is medically cleared for discharge; will downgrade off telemetry in the meantime Parasuicidal behavior Patient with intentional overdose as described above in response to significant psychosocial stressors Psychiatry consulted, appreciate recommendations Continue 1:1 sit, safety precautions Plan to transfer to inpatient psychiatry when a bed becomes available at a facility that takes patient's insurance Nausea Patient with chronic nausea, currently being worked up by outpatient GI Continue home dicyclomine Continue zofran prn FEN: regular diet Code status: full code DVT ppx: not indicated Consults: psychiatry PT/OT: not indicated Case management: following Dispo: med/surg Admission and Anticipated Discharge Date Admission Date: August 20, 2021 Supervising Physician Co-Signing Physician Notes For full attending documentation, see discharge summary from this date. Subjective Patient seen and evaluated at bedside this morning. Today, patient feels "alright". Nausea has improved a bit from yesterday. Patient reports "going back and forth" on whether she wants to be alive or not. No other complaints today. Patient denies CP, SOB, abdominal pain, vomiting, lightheadedness, dizziness, and diarrhea. Review of Systems Review of Systems: See HPI Physical Exam Physical Exam: Constitutional: well-appearing, no acute distress CV: regular rhythm, no murmur appreciated, extremities well-perfused, no LE edema Resp: CTABL, no wheezes/rales/rhonchi appreciated, no increased work of breathing GI: soft, nondistended, nontender, BS normoactive Skin: warm, dry, no rash appreciated Neuro: AOx4, no focal neurological deficits appreciated Appearance: well-groomed, appropriately dressed Behavior: calm, cooperative, eye contact good Mood: "okay" Affect: pleasant, affect congruent with mood Speech: appropriate rate/quantity/volume Thought process: linear, coherent Thought content: appropriate to topic of discussion, denies HI Cognition: alert, focused, short- and long-term memory grossly intact, abstraction intact Results & Data Results & Data ([facility]) Vital Signs (Past 12 Hours) Vital Signs Temp Pulse Pulse Resp BP Pulse Ox 08/22/21 08:33 36.6 C 98 H 16 112/68 99 08/22/21 07:45 62 08/22/21 04:46 36.7 C 63 16 121/76 98 08/22/21 03:19 70 Resident Activity Tracking Resident Involvement: Resident Care Provided Care Provided: Adult Hospital Medicine
--- NOTE | 2021-08-22 15:31 | Discharge Summary ---
Date of Service August 22, 2021 Admission HPI Per Admitting Provider 20 YOF with past medical history of: PTSD (on medical marijuana- [facility]), Depression, suicidal ideations, IBS/cramping on dicyclomine. Patient comes to the EMD today after she told her Ex-boyfriend that she took a bunch of pills, and he then told her mother, and EMS was sent to pick her up. Patient states that she has been having suicidal thoughts since over the weekend that started on Wednesday or Wednesday. Her plan was to "take pills". She endorses that she has had suicidal thoughts in the past when she was around 7th grade, but has not had much of them since then. She does endorse that around 11:45 AM on she took 125 mg of Zoloft, Motrin, and 10 tablets of "pain reliever PM". She also reports 4 episodes of vomiting at home while waiting for EMS. In the EMD she had a tox screen completed with that revealed a Tylenol level of 50 UG/ML, and (+) for marijuana. Her LFTs are currently normal at . Poison control was contacted by the EMD and was started on NAC therapy IV for 21 hours. During admission her mother did send her a picture of the bottle- which was Tylenol 500mg with Benadryl 25mg= as above she took 10 of these. The patient is up here for school at [employer] [facility] [employer], she is originally from [place] she reports. Patient does endorse stressors in her life as relationship issues with her Ex-boyfriend, falling behind in school work, getting kicked out of her apartment, abdominal pain with her IBS, and inability to see her Ex-boyfriend this morning at his hearing. She has had her COVID vaccine and her COVID test on admission is: NEGATIVE Admission Exam Per Admitting Provider PHYSICAL EXAM: General: awake, alert, no distress Head: Normocephalic, atraumatic ENT: PERRL, EOMI, no icterus, no pharyngeal exudate, mucous membranes dry Neuro: AAO x 3, speech clear and appropriate, strength intact bilaterally 5/5, sensation intact and equal all extremities and dermatomes, Chest: equal rise and fall of the chest, no accessory muscle use, no heaves or thrills, Clear to auscultation, on room air, Cardiac: Regular rate and rhythm, telemetry reviewed- sinus tach, skin warm dry, cap refill <3 seconds, peripheral pulses, +2 no JVD, no murmur, no edema GI: NABS x 4 quadrants, soft, nontender to palpation, no rebound, guarding or tenderness, liver border normal, no epigastric pain : denies any urinary symptoms- will repeat UA, Spontaneously voiding, no pain, no CVA tenderness, Extremities: Normal inspection, no peripheral edema or erythema, calfs nontender to palpation Psych: anxious now, feels safe and that she does not want to hurt herself, Skin: no rash or erythema Principal Diagnosis Intentional overdose Discharge Exam Constitutional: well-appearing, no acute distress CV: regular rhythm, no murmur appreciated, extremities well-perfused, no LE edema Resp: CTABL, no wheezes/rales/rhonchi appreciated, no increased work of breathing GI: soft, nondistended, nontender, BS normoactive Skin: warm, dry, no rash appreciated Neuro: AOx4, no focal neurological deficits appreciated Appearance: well-groomed, appropriately dressed Behavior: calm, cooperative, eye contact good Mood: "okay" Affect: pleasant, affect congruent with mood Speech: appropriate rate/quantity/volume Thought process: linear, coherent Thought content: appropriate to topic of discussion, denies HI Cognition: alert, focused, short- and long-term memory grossly intact, abstraction intact Discharge Data Allergies Allergy/AdvReac Type Severity Reaction Status Date / Time No Known Allergies Allergy Verified 07/16/21 09:23 Consultations 08/20/21 16:48 ED Decision to Admit Stat 08/20/21 21:27 Consult Psychiatry Routine Hospital Course (1) Intentional overdose of drug in tablet form: Intentional overdose of acetaminophen, diphenhydramine Patient with intentional overdose of approximately ten combination acetaminophen-diphenhydramine tablets (roughly 5g APAP and 250mg diphenhydramine) in response to significant psychosocial stressors e.g. recent breakup, unstable housing situation, and other factors. On admission, patient was tachycardic and APAP level (3-4 hours post-ingestion) was 50ug/mL. NAC therapy was initiated. Repeat APAP value was undetectable, at which time NAC therapy was discontinued. Patient's tachycardia resolved by hospital day two, and patient was felt to no longer be at risk for APAP toxicity or anticholinergic toxicity. Patient was felt medically stable for discharge, and was discharged on hospital day three. Parasuicidal behavior As noted above, patient presented after an intentional overdose with lethal intent. Suicide precautions were initiated. Psychiatry was consulted and felt patient's presentation was consistent with MDD, and that inpatient psychiatric treatment was indicated. Patient and patient's family was agreeable, and patient was discharged to a psychiatric hospital on hospital day three. No new meds were started. Nausea Patient was noted on hospital day two to have mild nausea in the morning, which patient states is a chronic issue which is being actively worked up by her outpatient GI physician. Patient's dicyclomine and zofran were continued. Total Time Total Time Spent Total Time Spent (In Minutes): see attending documentation Discharge Plan Discharge Items Patient Disposition: Transfer Behavioral Health Fac Reason For Visit: INTENTIONAL OVERDOSE Discharge Diagnosis: Intentional overdose Activity: Resume your previous activity Non-emergency contact: Primary Care Provider and Psychiatrist Call non-emergency contact if: you have any medication questions and your symptoms worsen Follow-up/Referrals: [facility] [Primary Care Provider] - Diet: Regular Addtl Attending Provider Instructions: Intentional overdose of acetaminophen, diphenhydramine Patient with intentional overdose of approximately ten combination acetaminophen-diphenhydramine tablets (roughly 5g APAP and 250mg diphenhydramine) Reportedly in response to significant psychosocial stressors e.g. recent breakup, unstable housing situation, others APAP level at 3-4 hours post-ingestion: 50ug/mL On admission, LFTs wnl, lactate 1.6, INR 1.1, glucose 113 NAC therapy initiated on admission due to concerns over true number of pills ingested Repeat APAP levels undetectable, NAC therapy discontinued Tachycardia on arrival has since resolved and has stayed wnl for ~18 hours Given resolution of tachycardia, patient is no longer at risk for anticholinergic toxicity Patient is medically cleared for discharge Parasuicidal behavior Patient with intentional overdose as described above in response to significant psychosocial stressors Patient agreeable to transfer to inpatient psychiatry Continue 1:1 sit, safety precautions Nausea Patient with chronic nausea, currently being worked up by outpatient GI Continue home dicyclomine Continue zofran prn Pending Studies at Discharge: No Stand-Alone Forms: My [facility] Medications and DC Order Prescriptions: New polyethylene glycol 3350 [Miralax] 17 gram Powder In Packet 34 g PO DAILY PRN (Reason: constipation) 30 Days Qty: 20 RF: 0 Continued dicyclomine 20 mg Tablet 20 mg PO QID PRN (Reason: cramping) Qty: 60 RF: 0 ondansetron 4 mg tablet,disintegrating 4 mg PO QID PRN (Reason: nausea and vomiting) Qty: 30 RF: 0 Kyleena 17.5 mcg/24 hrs (5 yrs) 19.5 mg Intrauterine Device 17.5 mcg INTRAUTERINE UD RF: 0 Medical Thc 1 inh PO UD PRN (Reason: anxiety/PTSD) RF: 0 Discharge Orders: Discharge Order (Routine); Ordered 08/22/21 Ordered By: Dayne Zhou Admission Data Admit Date/Time: 08/20/21 17:25 Attending Provider: Jay Conway Admit Provider: Sonny Gonzales Primary Care Provider: [facility] Other Providers: Sonny Gonzales ; Tracie Winchester ; Jessica Headley ; Deysi Murillo ; Yakov Castro Other Interventions: Discharge Summary Assessment (RN) Last Done: 08/22/21 15:43 Supervising Physician Co-Signing Physician Notes Attending attestation Pt seen and examined in concert with Dr. Zhou. In agreement with the documented findings as noted in the resident documentation with any exceptions or additions as noted here. Resting comfortably in bed. On examination, S1/S2 nl RRR no MCG. CTAB. Abd NT/ND BS+ve Intentional overdose (acetaminophen, diphenhydramine) - s/p NAC - to transition to inpatient psychiatric care Nausea, chronic - ondansetron and dicyclomine with good response, would recommend continuance Else see resident documentation as noted. Total attending time spent on this case on the day of discharge: 35 minutes. Resident Activity Tracking Resident Involvement: Resident Care Provided Care Provided: Adult Hospital Medicine
--- NOTE | 2021-08-22 22:38 | Electrocardiogram Report ---
Test Reason : Blood Pressure : / mmHG Vent. Rate : 062 BPM Atrial Rate : 062 BPM P-R Int : 134 ms QRS Dur : 082 ms QT Int : 402 ms P-R-T Axes : 034 057 027 degrees QTc Int : 408 ms Normal sinus rhythm with sinus arrhythmia Normal ECG When compared with ECG of 21-AUG-2021 05:43, No significant change was found Confirmed by Zach Pham ([id number]) on 08/22/2021 10:38:06 PM Referred By: REFERRED SELF Confirmed By:Zach Pham
[2021-08-23 08:06] LABS: Marijuana Quant, GCMS Urine 557 ng/mL (<5)
== END 2021-08-22 16:54 ==
LOC: ED 14:12 → SUATTDRO 17:25 → INTOOBSV 17:25 → 2W 17:25